=== PATIENT | male | born 1930 | race African-American/Black ===

== ENCOUNTER 2017-06-28 08:40 | Inpatient (IN) | payer MEDICARE, MEDICAID ==
[~2017-06-28] VITALS: Ht 170.2 cm; Wt 80.7 kg
[~2017-06-28 08:40] MED LIST: CARV12.545 PO; CLONIDINE PATCH TD; COLC0.6T66 PO; DICL50TA9 PO; DIGO250T4 PO; DOCU250C69 PO; FURO-151 PO; GABA-290 PO; LISI40TA4 PO; LORA10TA7 PO; LOSA100T14 PO; POTA10CA42 PO; PRED5DRO7 EACHEYE; PROP10DR2 EACHEYE; SYSOS EACHEYE; TAMS-11 PO
[2017-06-28] MEDS ORDERED: [UNRECOGNIZED DRUG - REMARK] (08:50)
[2017-06-28] MEDS ORDERED: SACU1TAB PO (08:50)
[2017-06-28] MEDS ORDERED: MORPHINE SULFATE 4 MG/ML CPJ (NOT FOR IM USE) IV STA (09:35)
[2017-06-28] MEDS ORDERED: SODIUM CHLORIDE 0.9% 1,000 ML IV ONE (09:35)
[2017-06-28] MEDS ORDERED: ONDANSETRON HCL 4MG/2ML VIAL IV STA (09:35)
[2017-06-28 10:05] LABS: CLARITY URINE CLEAR (CLEAR); COLOR URINE YELLOW (YELLOW); GLUCOSE URINE NEGATIVE (NEGATIVE); KETONES URINE NEGATIVE (NEGATIVE); LEUKOCYTE ESTERASE URINE NEGATIVE (NEGATIVE); NITRITE URINE NEGATIVE (NEGATIVE); OCCULT BLOOD URINE NEGATIVE (NEGATIVE); PH URINE 6.5 (4.5-8.0); PROTEIN URINE NEGATIVE (NEGATIVE); SPECIFIC GRAVITY URINE 1.009 (1.005-1.030); UROBILINOGEN URINE 0.2 E.U./dL (0.2-1.0)
[2017-06-28] MEDS ORDERED: MORPHINE SULFATE 2 MG/ML CPJ (NOT FOR IM USE) IV ONE (10:08)
[2017-06-28 10:09] LABS: BASOPHILS % 0.6 % (0.0-2.0); EOSINOPHILS % 0.6 % (0.0-5.0); HEMATOCRIT. 36.2 % (42.0-52.0); LYMPHOCYTES % 25.5 % (20.0-50.0); MEAN CORPUSCULAR HEMOGLOBIN 30.4 pg (28.0-32.0); MEAN CORPUSCULAR VOLUME 91.6 fL (80.0-94.0); MONOCYTES % 9.7 % (2.0-8.0); NEUTROPHILS % 63.6 % (40.0-76.0); RED BLOOD CELL COUNT 3.95 mill/uL (4.7-6.1); RED CELL DISTRIBUTION WIDTH 14.5 % (11.6-14.6)
[2017-06-28 10:17] LABS: INR 1.1; PARTIAL THROMBOPLASTIN TIME 32.8 sec (23.4-31.0); PROTHROMBIN TIME 11.9 sec (9.4-11.6)
[2017-06-28 10:20] LABS: CARBON DIOXIDE 28 mEq/L (21-32); CHLORIDE 106 mEq/L (98-107); TROPONIN I 0.05 ng/mL (0.00-0.04)
[2017-06-28 11:23] LABS: PLATELET 130 x1000/uL (130-400)
[2017-06-28] MEDS ORDERED: CEFTRIAXONE 1 G PREMIX 50 ML IV ONE (12:00)
[2017-06-28] MEDS ORDERED: ASPIRIN 325MG EC TABLET PO ONE (12:00)
[2017-06-28 14:45] VITALS: BP 166/80
[2017-06-28 16:00] VITALS: BP 170/71
[2017-06-28 16:15] VITALS: BP 157/67
[2017-06-28] MEDS ORDERED: ONDANSETRON HCL 4MG/2ML VIAL IV PRN (16:15)
[2017-06-28] MEDS ORDERED: CLONIDINE 0.1MG TABLET PO PRN (16:30)
[2017-06-28] MEDS ORDERED: DOCUSATE SODIUM 100MG CAPSULE PO PRN (17:00)
[2017-06-28] MEDS ORDERED: LORAZEPAM 0.5MG TABLET PO PRN (17:00)
[2017-06-28] MEDS ORDERED: GUAIFENESIN 200MG/10ML SUGAR FREE UDC PO PRN (17:00)
[2017-06-28] MEDS ORDERED: IPRATROPIUM/ALBUTEROL 0.5-3(2.5)MG/3ML NEB INH PRN (17:00)
[2017-06-28] MEDS ORDERED: ACETAMINOPHEN 325MG TABLET PO PRN (17:00)
[2017-06-28] MEDS ORDERED: MVI, ADULT NO.1 10 ML, THIAMINE HCL 100 MG in SODIUM CHLORIDE 0.9% 1,000 ML IV SCH ×3 (18:00)
[2017-06-28] MEDS ORDERED: DICL75TA5 PO (18:38)
[2017-06-28] MEDS ORDERED: FISH PO (18:38)
[2017-06-28 20:00] VITALS: BP 128/61
[2017-06-28] MEDS: GABAPENTIN 300MG CAPSULE PO SCH (22:59)
[2017-06-29] VITALS: BP 149/72
[2017-06-29 04:00] VITALS: BP 151/74
[2017-06-29] MEDS: GABAPENTIN 300MG CAPSULE PO SCH ×2 (05:38→15:28)
[2017-06-29 07:06] LABS: BASOPHILS % 0.7 % (0.0-2.0); EOSINOPHILS % 1.4 % (0.0-5.0); HEMATOCRIT. 31.5 % (42.0-52.0); HEMOGLOBIN. 10.4 g/dL (14.0-18.0); LYMPHOCYTES % 32.8 % (20.0-50.0); MEAN PLATELET VOLUME 8.6 fl (7.4-10.4); MONOCYTES % 10.8 % (2.0-8.0); NEUTROPHILS % 54.3 % (40.0-76.0); PLATELET 123 x1000/uL (130-400); RED BLOOD CELL COUNT 3.47 mill/uL (4.7-6.1); RED CELL DISTRIBUTION WIDTH 14.7 % (11.6-14.6)
[2017-06-29] MEDS ORDERED: OMEPRAZOLE 20MG CAPSULE EXTENDED RELEASE PO SCH (07:40)
[2017-06-29 07:43] LABS: CARBON DIOXIDE 27 mEq/L (21-32); CHLORIDE 110 mEq/L (98-107)
[2017-06-29 08:00] VITALS: BP 145/70
[2017-06-29] MEDS ORDERED: CLONIDINE HCL 0.3MG/24HR PATCH TD SCH (09:00)
[2017-06-29] MEDS ORDERED: NIFEDIPINE XL 60MG TAB PO SCH (09:00)
[2017-06-29] MEDS ORDERED: DICLOFENAC SODIUM 75MG DR (EC) TABLET PO SCH (09:00)
[2017-06-29] MEDS ORDERED: TAMSULOSIN HCL 0.4MG SR CAPSULE PO SCH (09:00)
[2017-06-29] MEDS ORDERED: CARVEDILOL 12.5MG TABLET PO SCH (09:00)
[2017-06-29] MEDS ORDERED: DOCUSATE SODIUM 250MG CAPSULE PO SCH (09:00)
[2017-06-29] MEDS ORDERED: LOSARTAN POTASSIUM 100 MG TABLET PO SCH (09:00)
[2017-06-29] MEDS ORDERED: FUROSEMIDE 40MG TABLET PO SCH (09:00)
[2017-06-29] MEDS ORDERED: POTASSIUM CHLORIDE 10MEQ TABLET SR PO SCH (09:00)
[2017-06-29 12:00] VITALS: BP 134/63
[2017-06-29 16:00] VITALS: BP 134/63
[2017-06-29] MEDS ORDERED: RIVAROXABAN 10 MG TABLET PO SCH (17:00)
[2017-06-29 17:26] VITALS: BP 149/73
[2017-06-29] MEDS ORDERED: DIGOXIN 250MCG TABLET PO SCH (18:00)
== END 2017-06-29 18:05 | disposition home or self-care (01) | DRG 291 ==
LOC: ER 09:23 → ENRESERV 13:04 → 7WST 13:13 → EDBEDREQ 13:16
PROVIDERS: ADMIT Internal Medicine; ATTEND Internal Medicine
DX: I11.0 Hypertensive heart disease with heart failure (principal); K57.91 Diverticulosis of intestine, part unspecified, without perforation or abscess with bleeding; R06.03 Acute respiratory distress; I24.9 Acute ischemic heart disease, unspecified; I43 Cardiomyopathy in diseases classified elsewhere; D64.9 Anemia, unspecified; I48.0 Paroxysmal atrial fibrillation; G43.909 Migraine, unspecified, not intractable, without status migrainosus; H40.9 Unspecified glaucoma; I50.43 Acute on chronic combined systolic (congestive) and diastolic (congestive) heart failure; I35.0 Nonrheumatic aortic (valve) stenosis; I25.10 Atherosclerotic heart disease of native coronary artery without angina pectoris; J44.9 Chronic obstructive pulmonary disease, unspecified; K59.00 Constipation, unspecified; M10.9 Gout, unspecified; M19.90 Unspecified osteoarthritis, unspecified site; M54.30 Sciatica, unspecified side; N40.1 Benign prostatic hyperplasia with lower urinary tract symptoms; Z96.643 Presence of artificial hip joint, bilateral; R35.1 Nocturia; Z79.899 Other long term (current) drug therapy; Z87.891 Personal history of nicotine dependence; Z95.1 Presence of aortocoronary bypass graft; Z95.2 Presence of prosthetic heart valve; Z95.810 Presence of automatic (implantable) cardiac defibrillator; Z98.42 Cataract extraction status, left eye; Z88.8 Allergy status to other drugs, medicaments and biological substances; Z88.1 Allergy status to other antibiotic agents
CPT/HCPCS: 36415; 71010; 74176; 80048; 80053; 80162; 81003; 82040; 83690; 83880; 84484; 85025; 85610; 85730; 87086; 93005; 96361; 96365; 96375; 99285; J0696; J2270; J2405; J3411; J3490; J7030

== ENCOUNTER 2018-01-29 21:11 | Inpatient (IN) | payer MEDICARE, MEDICAID ==
[~2018-01-29] VITALS: Ht 170.2 cm; Wt 85.3 kg
[~2018-01-29 21:11] MED LIST changes: -DICL50TA9 PO; +DICL75TA5 PO; +FISH PO; -LISI40TA4 PO; +SACU1TAB PO; +[UNRECOGNIZED DRUG - REMARK]
[2018-01-29] MEDS ORDERED: ASPIRIN 81MG TABLET PO STA (22:34)
[2018-01-29 23:36] LABS: CHLORIDE 108 mEq/L (98-107)
[2018-01-29 23:38] LABS: BASOPHILS % 0.6 % (0.0-2.0); EOSINOPHILS % 1.6 % (0.0-5.0); HEMATOCRIT. 35.4 % (42.0-52.0); HEMOGLOBIN. 11.6 g/dL (14.0-18.0); LYMPHOCYTES % 28.6 % (20.0-50.0); MEAN CORPUSCULAR HEMOGLOBIN 29.9 pg (28.0-32.0); MEAN CORPUSCULAR VOLUME 91.1 fL (80.0-94.0); MEAN PLATELET VOLUME 8.4 fl (7.4-10.4); MONOCYTES % 13.3 % (2.0-8.0); NEUTROPHILS % 55.9 % (40.0-76.0); PLATELET 173 x1000/uL (130-400); RED BLOOD CELL COUNT 3.88 mill/uL (4.7-6.1); RED CELL DISTRIBUTION WIDTH 15.2 % (11.6-14.6)
[2018-01-29 23:56] LABS: D-DIMER 1.58 mg/L FEU (<0.50); INR 1.2; PARTIAL THROMBOPLASTIN TIME 36.2 sec (23.4-31.0); PROTHROMBIN TIME 12.3 sec (9.4-11.6)
[2018-01-30 09:00] VITALS: BP 178/79
[2018-01-30 09:48] VITALS: BP 178/79
[2018-01-30] MEDS ORDERED: DOCUSATE SODIUM 100MG CAPSULE PO PRN (10:30)
[2018-01-30] MEDS ORDERED: LORAZEPAM 0.5MG TABLET PO PRN (10:30)
[2018-01-30] MEDS ORDERED: GUAIFENESIN 200MG/10ML SUGAR FREE UDC PO PRN (10:30)
[2018-01-30] MEDS ORDERED: CLONIDINE 0.1MG TABLET PO PRN (10:30)
[2018-01-30] MEDS ORDERED: ACETAMINOPHEN 325MG TABLET PO PRN (10:30)
[2018-01-30] MEDS ORDERED: ONDANSETRON HCL 4MG/2ML VIAL IV PRN (10:30)
[2018-01-30] MEDS ORDERED: SACU1TAB7 MT (10:56)
[2018-01-30] MEDS ORDERED: HYDROCODONE/ACETAMINOPHEN 5/325MG TABLET PO PRN (11:00)
[2018-01-30] MEDS ORDERED: DIPHENHYDRAMINE 25MG CAPSULE PO PRN (11:00)
[2018-01-30 12:00] VITALS: BP 172/80
[2018-01-30] MEDS ORDERED: NIFEDIPINE XL 60MG TAB PO SCH (12:00)
[2018-01-30] MEDS ORDERED: FUROSEMIDE 40MG TABLET PO SCH (12:01)
[2018-01-30] MEDS: FERROUS SULFATE 325MG TABLET PO SCH ×2 (12:42→17:12)
[2018-01-30] MEDS: ENOXAPARIN 40MG/0.4ML SYR SUBCUT SCH (12:43)
[2018-01-30] MEDS ORDERED: CLONIDINE HCL 0.3MG/24HR PATCH TD SCH (14:00)
[2018-01-30 16:00] VITALS: BP 176/80
[2018-01-30] MEDS: POTASSIUM CHLORIDE 10MEQ TABLET SR PO SCH (17:12)
[2018-01-30] MEDS: DIGOXIN 250MCG TABLET PO SCH (17:12)
[2018-01-30 20:00] VITALS: BP 152/77
[2018-01-30] MEDS: FUROSEMIDE 100MG/10ML VIAL IVP SCH (20:39)
[2018-01-30] MEDS: CARVEDILOL 12.5MG TABLET PO SCH (20:40)
[2018-01-30] MEDS: VALSARTAN PO SCH (20:40)
[2018-01-30] MEDS: SACUBITRIL PO SCH (20:40)
[2018-01-30] MEDS: TAMSULOSIN HCL 0.4MG SR CAPSULE PO SCH (20:47)
[2018-01-30 23:54] VITALS: BP 142/79
[2018-01-31 04:00] VITALS: BP 153/75
[2018-01-31 06:45] LABS: CHLORIDE 105 mEq/L (98-107)
[2018-01-31] MEDS: FUROSEMIDE 100MG/10ML VIAL IVP SCH ×2 (06:48→17:11)
[2018-01-31 07:15] LABS: DIGOXIN 1.4 ng/mL (0.9-2.0)
[2018-01-31 07:53] VITALS: BP 120/72
[2018-01-31] MEDS: POTASSIUM CHLORIDE 10MEQ TABLET SR PO SCH (09:00)
[2018-01-31] MEDS: FERROUS SULFATE 325MG TABLET PO SCH ×3 (09:00→17:11)
[2018-01-31] MEDS: CARVEDILOL 12.5MG TABLET PO SCH ×2 (09:00→20:39)
[2018-01-31] MEDS: ENOXAPARIN 40MG/0.4ML SYR SUBCUT SCH (09:01)
[2018-01-31] MEDS: SACUBITRIL PO SCH ×2 (09:01→20:39)
[2018-01-31] MEDS: VALSARTAN PO SCH ×2 (09:01→20:39)
[2018-01-31 12:00] VITALS: BP 147/76
[2018-01-31 16:00] VITALS: BP 139/66
[2018-01-31] MEDS: DIGOXIN 250MCG TABLET PO SCH (17:11)
[2018-01-31] MEDS: POTASSIUM CHLORIDE 20MEQ TABLET SR PO SCH (17:11)
[2018-01-31 20:00] VITALS: BP 120/75
[2018-01-31] MEDS: NIFEDIPINE XL 60MG TAB PO SCH (20:39)
[2018-01-31] MEDS: TAMSULOSIN HCL 0.4MG SR CAPSULE PO SCH (20:43)
[2018-02-01] VITALS: BP 123/64
[2018-02-01 04:00] VITALS: BP 144/69
[2018-02-01] MEDS: FUROSEMIDE 100MG/10ML VIAL IVP SCH (06:19)
[2018-02-01 06:47] LABS: BASOPHILS % 0.7 % (0.0-2.0); EOSINOPHILS % 1.1 % (0.0-5.0); HEMATOCRIT. 37.9 % (42.0-52.0); HEMOGLOBIN. 12.7 g/dL (14.0-18.0); LYMPHOCYTES % 30.6 % (20.0-50.0); MEAN CORPUSCULAR HEMOGLOBIN 30.2 pg (28.0-32.0); MEAN CORPUSCULAR VOLUME 90.5 fL (80.0-94.0); MEAN PLATELET VOLUME 8.8 fl (7.4-10.4); NEUTROPHILS % 54.6 % (40.0-76.0); PLATELET 159 x1000/uL (130-400); RED BLOOD CELL COUNT 4.19 mill/uL (4.7-6.1)
[2018-02-01 08:00] VITALS: BP 115/73
[2018-02-01] MEDS: NIFEDIPINE XL 60MG TAB PO SCH ×3 (08:45→17:05)
[2018-02-01] MEDS: FERROUS SULFATE 325MG TABLET PO SCH ×3 (08:45→17:05)
[2018-02-01] MEDS: POTASSIUM CHLORIDE 20MEQ TABLET SR PO SCH ×2 (08:45→17:05)
[2018-02-01] MEDS: CARVEDILOL 12.5MG TABLET PO SCH ×2 (08:45→21:02)
[2018-02-01] MEDS: ENOXAPARIN 40MG/0.4ML SYR SUBCUT SCH (08:46)
[2018-02-01] MEDS: SACUBITRIL PO SCH ×2 (08:46→21:02)
[2018-02-01] MEDS: VALSARTAN PO SCH ×2 (08:46→21:02)
[2018-02-01 12:00] VITALS: BP 131/76
[2018-02-01 16:00] VITALS: BP 145/83
[2018-02-01] MEDS: DIGOXIN 250MCG TABLET PO SCH (17:05)
[2018-02-01] MEDS: FUROSEMIDE 80MG TABLET PO SCH (17:05)
[2018-02-01 20:00] VITALS: BP 145/72
[2018-02-01] MEDS: TAMSULOSIN HCL 0.4MG SR CAPSULE PO SCH (21:02)
[2018-02-02 00:05] VITALS: BP 122/66
[2018-02-02 04:00] VITALS: BP 129/69
[2018-02-02] MEDS: FUROSEMIDE 80MG TABLET PO SCH (05:55)
[2018-02-02 08:00] VITALS: BP 105/69
[2018-02-02] MEDS: VALSARTAN PO SCH (08:44)
[2018-02-02] MEDS: SACUBITRIL PO SCH (08:44)
[2018-02-02] MEDS: CARVEDILOL 12.5MG TABLET PO SCH (08:45)
[2018-02-02] MEDS: FERROUS SULFATE 325MG TABLET PO SCH (08:45)
[2018-02-02] MEDS: ENOXAPARIN 40MG/0.4ML SYR SUBCUT SCH (08:46)
[2018-02-02] MEDS: NIFEDIPINE XL 60MG TAB PO SCH (08:46)
[2018-02-02] MEDS: POTASSIUM CHLORIDE 20MEQ TABLET SR PO SCH (08:46)
[2018-02-02 10:32] VITALS: BP 105/69
[2018-02-02 11:09] LABS: BASOPHILS % 0.8 % (0.0-2.0); EOSINOPHILS % 0.6 % (0.0-5.0); HEMATOCRIT. 41.4 % (42.0-52.0); HEMOGLOBIN. 13.7 g/dL (14.0-18.0); LYMPHOCYTES % 20.4 % (20.0-50.0); MEAN CORPUSCULAR VOLUME 90.6 fL (80.0-94.0); MEAN PLATELET VOLUME 8.7 fl (7.4-10.4); MONOCYTES % 10.8 % (2.0-8.0); NEUTROPHILS % 67.4 % (40.0-76.0); PLATELET 172 x1000/uL (130-400); RED BLOOD CELL COUNT 4.57 mill/uL (4.7-6.1); RED CELL DISTRIBUTION WIDTH 15.4 % (11.6-14.6)
== END 2018-02-02 11:32 | disposition home or self-care (01) | DRG 291 ==
LOC: EDBEDREQ 23:04 → EDBEDREQDT 01-30 00:31 → EDBEDREQTM 01-30 00:31 → EDBEDREQ 01-30 00:45 → ER 01-30 01:01 → 7WST 01-30 01:02 → ENRESERV 01-30 07:38
PROVIDERS: ADMIT Internal Medicine; ATTEND Internal Medicine
DX: I11.0 Hypertensive heart disease with heart failure (principal); K57.91 Diverticulosis of intestine, part unspecified, without perforation or abscess with bleeding; I47.2 Ventricular tachycardia; R06.03 Acute respiratory distress; I50.43 Acute on chronic combined systolic (congestive) and diastolic (congestive) heart failure; I43 Cardiomyopathy in diseases classified elsewhere; M19.90 Unspecified osteoarthritis, unspecified site; I25.10 Atherosclerotic heart disease of native coronary artery without angina pectoris; G43.909 Migraine, unspecified, not intractable, without status migrainosus; H26.9 Unspecified cataract; H40.9 Unspecified glaucoma; Z96.641 Presence of right artificial hip joint; G47.9 Sleep disorder, unspecified; I35.0 Nonrheumatic aortic (valve) stenosis; I48.0 Paroxysmal atrial fibrillation; J44.9 Chronic obstructive pulmonary disease, unspecified; K59.00 Constipation, unspecified; M10.9 Gout, unspecified; N40.1 Benign prostatic hyperplasia with lower urinary tract symptoms; Z87.891 Personal history of nicotine dependence; Z88.3 Allergy status to other anti-infective agents; Z79.899 Other long term (current) drug therapy; Z95.810 Presence of automatic (implantable) cardiac defibrillator; Z95.1 Presence of aortocoronary bypass graft; Z95.2 Presence of prosthetic heart valve; Z88.1 Allergy status to other antibiotic agents; Z79.1 Long term (current) use of non-steroidal anti-inflammatories (NSAID)
CPT/HCPCS: 36415; 71045; 71275; 80048; 80053; 80162; 82040; 83735; 83880; 84484; 85025; 85379; 85610; 85730; 93005; 99285; J1650; J1940

== ENCOUNTER 2018-07-08 05:57 | Inpatient (IN) | payer MEDICARE, MEDICAID ==
[~2018-07-08] VITALS: Ht 170.2 cm; Wt 86.2 kg
[~2018-07-08 05:57] MED LIST changes: -SACU1TAB PO; +SACU1TAB7 MT
[2018-07-08] MEDS ORDERED: ASPIRIN 81MG TABLET PO ONE (09:15)
[2018-07-08 09:35] LABS: BASOPHILS % 0.6 % (0.0-2.0); EOSINOPHILS % 0.8 % (0.0-5.0); HEMATOCRIT. 37.1 % (42.0-52.0); HEMOGLOBIN. 12.4 g/dL (14.0-18.0); LYMPHOCYTES % 20.3 % (20.0-50.0); MEAN CORPUSCULAR HEMOGLOBIN 31.4 pg (28.0-32.0); MEAN CORPUSCULAR VOLUME 93.9 fL (80.0-94.0); MEAN PLATELET VOLUME 8.5 fl (7.4-10.4); MONOCYTES % 11.6 % (2.0-8.0); NEUTROPHILS % 66.7 % (40.0-76.0); PLATELET 124 x1000/uL (130-400); RED BLOOD CELL COUNT 3.95 mill/uL (4.7-6.1); RED CELL DISTRIBUTION WIDTH 14.5 % (11.6-14.6)
[2018-07-08 09:40] LABS: CHLORIDE 107 mEq/L (98-107)
[2018-07-08 09:45] LABS: D-DIMER 1.58 mg/L FEU (<0.50); INR 1.1; PARTIAL THROMBOPLASTIN TIME 34.2 sec (23.4-31.0); PROTHROMBIN TIME 11.2 sec (9.1-11.1)
[2018-07-08] MEDS ORDERED: FUROSEMIDE 40MG/4ML VIAL IV ONE (11:00)
[2018-07-08] MEDS ORDERED: NITROGLYCERIN OINT 1GM/INCH UDPKT TD ONE (11:00)
[2018-07-08 12:21] LABS: CLARITY URINE CLEAR (CLEAR); COLOR URINE YELLOW (YELLOW); KETONES URINE NEGATIVE (NEGATIVE); LEUKOCYTE ESTERASE URINE TRACE (NEGATIVE); NITRITE URINE NEGATIVE (NEGATIVE); OCCULT BLOOD URINE NEGATIVE (NEGATIVE); PH URINE 5.5 (4.5-8.0); PROTEIN URINE 2+ (NEGATIVE); SPECIFIC GRAVITY URINE 1.017 (1.005-1.030)
[2018-07-08] MEDS ORDERED: CLONIDINE 0.1MG TABLET PO PRN (14:15)
[2018-07-08] MEDS ORDERED: ONDANSETRON HCL 4MG/2ML INJ IV PRN (14:15)
[2018-07-08] MEDS ORDERED: HYDROCODONE/ACETAMINOPHEN 5/325MG TABLET PO PRN (14:15)
[2018-07-08] MEDS ORDERED: LORAZEPAM 0.5MG TABLET PO PRN (14:15)
[2018-07-08] MEDS ORDERED: DOCUSATE SODIUM 100MG CAPSULE PO PRN (14:15)
[2018-07-08] MEDS ORDERED: ACETAMINOPHEN 325MG TABLET PO PRN (14:15)
[2018-07-08] MEDS ORDERED: IPRATROPIUM/ALBUTEROL 0.5-3(2.5)MG/3ML NEB INH PRN (14:15)
[2018-07-08] MEDS ORDERED: GUAIFENESIN 200MG/10ML SUGAR FREE UDC PO PRN (14:15)
[2018-07-08] MEDS: LOSARTAN POTASSIUM 100 MG TABLET PO SCH (15:30)
[2018-07-08 20:00] VITALS: BP 169/90
[2018-07-08 21:00] VITALS: BP 169/90
[2018-07-08] MEDS: FISH OIL/OMEGA-3 FATTY ACIDS 1000MG CAPSULE PO SCH (22:00)
[2018-07-08] MEDS ORDERED: CLONIDINE HCL 0.3MG/24HR PATCH TD SCH (22:00)
[2018-07-08] MEDS: POTASSIUM CHLORIDE 10MEQ TABLET SR PO SCH (23:25)
[2018-07-08] MEDS: NIFEDIPINE XL 60MG TAB PO SCH (23:25)
[2018-07-08] MEDS: DICLOFENAC SODIUM 50MG EC TABLET PO SCH (23:25)
[2018-07-08] MEDS: ENOXAPARIN 40MG/0.4ML SYR SUBCUT SCH (23:26)
[2018-07-09 00:08] VITALS: BP 139/80
[2018-07-09 04:00] VITALS: BP 128/73
[2018-07-09 07:44] LABS: BASOPHILS % 0.7 % (0.0-2.0); EOSINOPHILS % 1.6 % (0.0-5.0); HEMATOCRIT. 32.8 % (42.0-52.0); HEMOGLOBIN. 11.1 g/dL (14.0-18.0); MEAN CORPUSCULAR HEMOGLOBIN 31.5 pg (28.0-32.0); MEAN CORPUSCULAR VOLUME 93.2 fL (80.0-94.0); MEAN PLATELET VOLUME 9.4 fl (7.4-10.4); MONOCYTES % 11.7 % (2.0-8.0); PLATELET 122 x1000/uL (130-400); RED BLOOD CELL COUNT 3.51 mill/uL (4.7-6.1); RED CELL DISTRIBUTION WIDTH 13.9 % (11.6-14.6)
[2018-07-09 08:00] VITALS: BP 124/61
[2018-07-09 08:53] LABS: CHLORIDE 109 mEq/L (98-107)
[2018-07-09] MEDS: DIGOXIN 250MCG TABLET PO SCH (09:02)
[2018-07-09] MEDS: FERROUS SULFATE 325MG TABLET PO SCH ×2 (09:03→17:09)
[2018-07-09] MEDS: LOSARTAN POTASSIUM 100 MG TABLET PO SCH (09:03)
[2018-07-09] MEDS: POTASSIUM CHLORIDE 10MEQ TABLET SR PO SCH ×2 (09:03→17:08)
[2018-07-09] MEDS: CARVEDILOL 12.5MG TABLET PO SCH ×2 (09:03→17:09)
[2018-07-09] MEDS: DICLOFENAC SODIUM 50MG EC TABLET PO SCH ×2 (09:04→21:23)
[2018-07-09] MEDS: TAMSULOSIN HCL 0.4MG SR CAPSULE PO SCH (09:04)
[2018-07-09] MEDS: FUROSEMIDE 40MG TABLET PO SCH (09:05)
[2018-07-09] MEDS: NIFEDIPINE XL 60MG TAB PO SCH ×2 (09:05→17:09)
[2018-07-09] MEDS ORDERED: REGADENOSON 0.4 MG/5 ML IV NR (11:15)
[2018-07-09 12:00] VITALS: BP 122/64
[2018-07-09] MEDS: FISH OIL/OMEGA-3 FATTY ACIDS 1000MG CAPSULE PO SCH (12:05)
[2018-07-09 16:00] VITALS: BP 131/69
[2018-07-09 20:00] VITALS: BP 125/65
[2018-07-09] MEDS: ENOXAPARIN 40MG/0.4ML SYR SUBCUT SCH (21:25)
[2018-07-10] VITALS: BP 124/64
[2018-07-10 04:00] VITALS: BP 135/63
[2018-07-10 08:00] VITALS: BP 144/72
[2018-07-10] MEDS ORDERED: REGADENOSON 0.4 MG/5 ML IV ONE (09:22)
[2018-07-10] MEDS: LOSARTAN POTASSIUM 100 MG TABLET PO SCH (10:32)
[2018-07-10] MEDS: TAMSULOSIN HCL 0.4MG SR CAPSULE PO SCH (10:32)
[2018-07-10] MEDS: CARVEDILOL 12.5MG TABLET PO SCH ×2 (10:32→17:07)
[2018-07-10] MEDS: FUROSEMIDE 40MG TABLET PO SCH (10:32)
[2018-07-10] MEDS: FERROUS SULFATE 325MG TABLET PO SCH ×2 (10:32→17:07)
[2018-07-10] MEDS: POTASSIUM CHLORIDE 10MEQ TABLET SR PO SCH ×2 (10:33→17:07)
[2018-07-10] MEDS: NIFEDIPINE XL 60MG TAB PO SCH ×2 (10:35→17:07)
[2018-07-10] MEDS: FISH OIL/OMEGA-3 FATTY ACIDS 1000MG CAPSULE PO SCH (10:37)
[2018-07-10] MEDS: DICLOFENAC SODIUM 50MG EC TABLET PO SCH (10:37)
[2018-07-10] MEDS: DIGOXIN 250MCG TABLET PO SCH (10:38)
[2018-07-10 12:00] VITALS: BP 157/70
[2018-07-10 16:00] VITALS: BP 145/70
[2018-07-10 16:36] VITALS: BP 142/70
== END 2018-07-10 17:57 | disposition home or self-care (01) | DRG 291 ==
LOC: ER 05:57 → 7WST 11:28 → ENRESERV 20:10
PROVIDERS: ADMIT Internal Medicine; ATTEND Internal Medicine
DX: I11.0 Hypertensive heart disease with heart failure (principal); K57.91 Diverticulosis of intestine, part unspecified, without perforation or abscess with bleeding; J44.9 Chronic obstructive pulmonary disease, unspecified; D64.9 Anemia, unspecified; I50.83 High output heart failure; G89.29 Other chronic pain; H40.9 Unspecified glaucoma; I25.10 Atherosclerotic heart disease of native coronary artery without angina pectoris; I43 Cardiomyopathy in diseases classified elsewhere; M54.5 Low back pain; G43.909 Migraine, unspecified, not intractable, without status migrainosus; K59.00 Constipation, unspecified; I50.43 Acute on chronic combined systolic (congestive) and diastolic (congestive) heart failure; I48.2 Chronic atrial fibrillation; M10.9 Gout, unspecified; M19.90 Unspecified osteoarthritis, unspecified site; N40.1 Benign prostatic hyperplasia with lower urinary tract symptoms; Z96.643 Presence of artificial hip joint, bilateral; Z96.652 Presence of left artificial knee joint; Z87.891 Personal history of nicotine dependence; Z95.2 Presence of prosthetic heart valve; Z95.810 Presence of automatic (implantable) cardiac defibrillator; Z95.1 Presence of aortocoronary bypass graft; Z88.1 Allergy status to other antibiotic agents; Z98.42 Cataract extraction status, left eye; Z98.41 Cataract extraction status, right eye; Z79.899 Other long term (current) drug therapy
CPT/HCPCS: 36415; 71045; 78452; 78582; 80162; 82040; 83880; 84484; 85379; 87077; 87186; 93005; 93017; 93970; 96374; 99285; A9500; A9558; J1650; J1940; J2785

== ENCOUNTER 2018-08-18 13:46 | Inpatient (IN) | payer MEDICARE, MEDICAID ==
[~2018-08-18] VITALS: Ht 170.2 cm; Wt 82.6 kg
[2018-08-18 16:32] LABS: HEMATOCRIT. 38.5 % (42.0-52.0); HEMOGLOBIN. 13.1 g/dL (14.0-18.0); MEAN CORPUSCULAR HEMOGLOBIN 32.6 pg (28.0-32.0); MEAN CORPUSCULAR VOLUME 95.6 fL (80.0-94.0); MEAN PLATELET VOLUME 10.3 fl (7.4-10.4); PLATELET 128 x1000/uL (130-400); RED BLOOD CELL COUNT 4.02 mill/uL (4.7-6.1); RED CELL DISTRIBUTION WIDTH 14.1 % (11.6-14.6)
[2018-08-18 16:38] LABS: CHLORIDE 105 mEq/L (98-107)
[2018-08-18 16:41] LABS: INR 1.1; PROTHROMBIN TIME 11.4 sec (9.1-11.1)
[2018-08-18 17:25] LABS: PLATELET ESTIMATE SLIGHTLY DECREASED
[2018-08-18 18:20] LABS: CLARITY URINE CLEAR (CLEAR); COLOR URINE YELLOW (YELLOW); KETONES URINE TRACE (NEGATIVE); LEUKOCYTE ESTERASE URINE NEGATIVE (NEGATIVE); NITRITE URINE NEGATIVE (NEGATIVE); OCCULT BLOOD URINE NEGATIVE (NEGATIVE); PH URINE 5.5 (4.5-8.0); PROTEIN URINE NEGATIVE (NEGATIVE); SPECIFIC GRAVITY URINE 1.014 (1.005-1.030)
[2018-08-18] MEDS ORDERED: FUROSEMIDE 40MG/4ML VIAL IVP ONE (19:00)
[2018-08-18] MEDS ORDERED: ASPIRIN 81MG TABLET PO ONE (19:00)
[2018-08-18] MEDS ORDERED: LORAZEPAM 0.5MG TABLET PO PRN (23:15)
[2018-08-18] MEDS ORDERED: ONDANSETRON HCL 4MG/2ML INJ IV PRN (23:15)
[2018-08-18] MEDS ORDERED: GUAIFENESIN 200MG/10ML SUGAR FREE UDC PO PRN (23:15)
[2018-08-18] MEDS ORDERED: DOCUSATE SODIUM 100MG CAPSULE PO PRN (23:15)
[2018-08-18] MEDS ORDERED: CLONIDINE 0.1MG TABLET PO PRN (23:15)
[2018-08-18] MEDS ORDERED: IPRATROPIUM/ALBUTEROL 0.5-3(2.5)MG/3ML NEB INH PRN (23:15)
[2018-08-18] MEDS ORDERED: ACETAMINOPHEN 325MG TABLET PO PRN (23:15)
[2018-08-18] MEDS ORDERED: DIPHENHYDRAMINE 25MG CAPSULE PO PRN (23:30)
[2018-08-19 00:02] LABS: DIGOXIN 1.4 ng/mL (0.9-2.0)
[2018-08-19] MEDS ORDERED: HYDROCODONE/ACETAMINOPHEN 5/325MG TABLET PO PRN (01:54)
[2018-08-19 02:31] VITALS: BP 135/71
[2018-08-19 04:00] VITALS: BP 111/65
[2018-08-19 08:00] VITALS: BP 116/57
[2018-08-19 08:12] LABS: BASOPHILS % 0.6 % (0.0-2.0); EOSINOPHILS % 1.1 % (0.0-5.0); HEMATOCRIT. 36.3 % (42.0-52.0); HEMOGLOBIN. 12.1 g/dL (14.0-18.0); LYMPHOCYTES % 41.4 % (20.0-50.0); MEAN CORPUSCULAR HEMOGLOBIN 31.4 pg (28.0-32.0); MEAN PLATELET VOLUME 9.4 fl (7.4-10.4); MONOCYTES % 14.4 % (2.0-8.0); NEUTROPHILS % 42.5 % (40.0-76.0); PLATELET 128 x1000/uL (130-400); RED BLOOD CELL COUNT 3.86 mill/uL (4.7-6.1); RED CELL DISTRIBUTION WIDTH 14.4 % (11.6-14.6)
[2018-08-19] MEDS: FUROSEMIDE 40MG TABLET PO SCH (08:46)
[2018-08-19] MEDS: LOSARTAN POTASSIUM 100 MG TABLET PO SCH (08:46)
[2018-08-19] MEDS: NIFEDIPINE XL 60MG TAB PO SCH ×2 (08:46→20:26)
[2018-08-19] MEDS: TAMSULOSIN HCL 0.4MG SR CAPSULE PO SCH (08:46)
[2018-08-19] MEDS: CARVEDILOL 12.5MG TABLET PO SCH ×2 (08:47→20:26)
[2018-08-19] MEDS: ENOXAPARIN 40MG/0.4ML SYR SUBCUT SCH (08:47)
[2018-08-19] MEDS: FERROUS SULFATE 325MG TABLET PO SCH ×2 (08:47→17:47)
[2018-08-19] MEDS: DICLOFENAC SODIUM 75MG DR (EC) TABLET PO SCH ×2 (08:47→20:26)
[2018-08-19] MEDS ORDERED: CLONIDINE HCL 0.3MG/24HR PATCH TD SCH (09:00)
[2018-08-19 09:12] LABS: CHLORIDE 108 mEq/L (98-107)
[2018-08-19 12:00] VITALS: BP 119/62
[2018-08-19] MEDS: POTASSIUM CHLORIDE 10MEQ TABLET SR PO SCH ×2 (13:46→17:47)
[2018-08-19 16:00] VITALS: BP 118/60
[2018-08-19] MEDS: DIGOXIN 250MCG TABLET PO SCH (17:47)
[2018-08-19 20:00] VITALS: BP 132/67
[2018-08-20] VITALS (7 sets, daily range): BP systolic 113–130; BP diastolic 54–68
[2018-08-20] MEDS: LOSARTAN POTASSIUM 100 MG TABLET PO SCH (09:22)
[2018-08-20] MEDS: CARVEDILOL 12.5MG TABLET PO SCH ×2 (09:22→20:50)
[2018-08-20] MEDS: FUROSEMIDE 40MG TABLET PO SCH (09:22)
[2018-08-20] MEDS: POTASSIUM CHLORIDE 10MEQ TABLET SR PO SCH ×2 (09:22→17:10)
[2018-08-20] MEDS: NIFEDIPINE XL 60MG TAB PO SCH ×2 (09:22→20:50)
[2018-08-20] MEDS: DICLOFENAC SODIUM 75MG DR (EC) TABLET PO SCH ×2 (09:22→20:50)
[2018-08-20] MEDS: TAMSULOSIN HCL 0.4MG SR CAPSULE PO SCH (09:22)
[2018-08-20] MEDS: FERROUS SULFATE 325MG TABLET PO SCH ×2 (09:22→17:10)
[2018-08-20] MEDS: ENOXAPARIN 40MG/0.4ML SYR SUBCUT SCH (09:23)
[2018-08-20 10:00] LABS: BASOPHILS % 0.6 % (0.0-2.0); EOSINOPHILS % 0.9 % (0.0-5.0); HEMATOCRIT. 39.2 % (42.0-52.0); HEMOGLOBIN. 12.9 g/dL (14.0-18.0); LYMPHOCYTES % 37.9 % (20.0-50.0); MEAN CORPUSCULAR HEMOGLOBIN 31.3 pg (28.0-32.0); MEAN CORPUSCULAR VOLUME 94.9 fL (80.0-94.0); MEAN PLATELET VOLUME 9.1 fl (7.4-10.4); MONOCYTES % 10.1 % (2.0-8.0); NEUTROPHILS % 50.5 % (40.0-76.0); PLATELET 136 x1000/uL (130-400); RED BLOOD CELL COUNT 4.13 mill/uL (4.7-6.1); RED CELL DISTRIBUTION WIDTH 14.3 % (11.6-14.6)
[2018-08-20] MEDS: DIGOXIN 250MCG TABLET PO SCH (17:10)
[2018-08-21 00:04] VITALS: BP 117/56
[2018-08-21 04:00] VITALS: BP 116/53
[2018-08-21 08:07] LABS: BASOPHILS % 0.4 % (0.0-2.0); EOSINOPHILS % 1.4 % (0.0-5.0); HEMATOCRIT. 34.8 % (42.0-52.0); HEMOGLOBIN. 11.6 g/dL (14.0-18.0); LYMPHOCYTES % 34.3 % (20.0-50.0); MEAN CORPUSCULAR HEMOGLOBIN 31.6 pg (28.0-32.0); MEAN CORPUSCULAR VOLUME 94.8 fL (80.0-94.0); MEAN PLATELET VOLUME 9.4 fl (7.4-10.4); MONOCYTES % 11.5 % (2.0-8.0); NEUTROPHILS % 52.4 % (40.0-76.0); PLATELET 124 x1000/uL (130-400); RED BLOOD CELL COUNT 3.67 mill/uL (4.7-6.1)
[2018-08-21 08:21] VITALS: BP 135/69
[2018-08-21] MEDS: FUROSEMIDE 40MG TABLET PO SCH (09:20)
[2018-08-21] MEDS: LOSARTAN POTASSIUM 100 MG TABLET PO SCH (09:20)
[2018-08-21] MEDS: ENOXAPARIN 40MG/0.4ML SYR SUBCUT SCH (09:20)
[2018-08-21] MEDS: NIFEDIPINE XL 60MG TAB PO SCH (09:20)
[2018-08-21] MEDS: FERROUS SULFATE 325MG TABLET PO SCH (09:20)
[2018-08-21] MEDS: POTASSIUM CHLORIDE 10MEQ TABLET SR PO SCH (09:20)
[2018-08-21] MEDS: DICLOFENAC SODIUM 75MG DR (EC) TABLET PO SCH (09:21)
[2018-08-21] MEDS: TAMSULOSIN HCL 0.4MG SR CAPSULE PO SCH (09:21)
[2018-08-21] MEDS: CARVEDILOL 12.5MG TABLET PO SCH (09:21)
[2018-08-21 12:00] VITALS: BP 138/69
[2018-08-26] MEDS ORDERED: CLONIDINE HCL 0.3MG/24HR PATCH TD SCH (09:00)
== END 2018-08-21 13:13 | disposition home or self-care (01) | DRG 292 ==
LOC: ER 13:46 → EDBEDREQ 19:31 → 7WST 21:21 → EDBEDREQ 21:23 → EDBEDREQTM 21:23 → ENRESERV 08-19 00:11
PROVIDERS: ADMIT Internal Medicine; ATTEND Internal Medicine
DX: I11.0 Hypertensive heart disease with heart failure (principal); I47.2 Ventricular tachycardia; N17.9 Acute kidney failure, unspecified; I50.43 Acute on chronic combined systolic (congestive) and diastolic (congestive) heart failure; J44.9 Chronic obstructive pulmonary disease, unspecified; K57.90 Diverticulosis of intestine, part unspecified, without perforation or abscess without bleeding; I48.2 Chronic atrial fibrillation; I43 Cardiomyopathy in diseases classified elsewhere; I35.0 Nonrheumatic aortic (valve) stenosis; I25.10 Atherosclerotic heart disease of native coronary artery without angina pectoris; N20.0 Calculus of kidney; M19.90 Unspecified osteoarthritis, unspecified site; M10.9 Gout, unspecified; K74.60 Unspecified cirrhosis of liver; K59.00 Constipation, unspecified; N40.1 Benign prostatic hyperplasia with lower urinary tract symptoms; Z95.2 Presence of prosthetic heart valve; K64.9 Unspecified hemorrhoids; Z96.652 Presence of left artificial knee joint; Z87.891 Personal history of nicotine dependence; D64.9 Anemia, unspecified; G89.29 Other chronic pain; H26.9 Unspecified cataract; H40.9 Unspecified glaucoma; Z96.641 Presence of right artificial hip joint; Z88.8 Allergy status to other drugs, medicaments and biological substances; Z95.1 Presence of aortocoronary bypass graft; Z95.0 Presence of cardiac pacemaker; Z95.810 Presence of automatic (implantable) cardiac defibrillator
CPT/HCPCS: 36415; 71045; 74176; 80048; 80162; 82040; 83605; 83735; 83880; 84484; 93005; 93970; 96374; 99285; C1893; J1650; J1940

== ENCOUNTER 2018-09-26 14:04 | Emergency (ER) | payer MEDICARE, MEDICAID ==
[~2018-09-26] VITALS: Ht 175.3 cm; Wt 82.0 kg
[2018-09-27 02:58] LABS: CLARITY URINE CLEAR (CLEAR); COLOR URINE YELLOW (YELLOW); KETONES URINE TRACE (NEGATIVE); LEUKOCYTE ESTERASE URINE NEGATIVE (NEGATIVE); NITRITE URINE NEGATIVE (NEGATIVE); OCCULT BLOOD URINE NEGATIVE (NEGATIVE); PROTEIN URINE NEGATIVE (NEGATIVE); SPECIFIC GRAVITY URINE 1.016 (1.005-1.030)
[2018-09-27 03:00] LABS: CHLORIDE 109 mEq/L (98-107)
[2018-09-27 03:04] LABS: BASOPHILS % 0.7 % (0.0-2.0); EOSINOPHILS % 1.5 % (0.0-5.0); HEMATOCRIT. 39.4 % (42.0-52.0); INR 1.1; LYMPHOCYTES % 37.7 % (20.0-50.0); MEAN CORPUSCULAR HEMOGLOBIN 31.6 pg (28.0-32.0); MEAN CORPUSCULAR VOLUME 95.9 fL (80.0-94.0); MEAN PLATELET VOLUME 9.1 fl (7.4-10.4); MONOCYTES % 12.7 % (2.0-8.0); NEUTROPHILS % 47.4 % (40.0-76.0); PLATELET 158 x1000/uL (130-400); RED CELL DISTRIBUTION WIDTH 14.1 % (11.6-14.6)
[2018-09-27] MEDS ORDERED: HYDRALAZINE HCL 50MG TABLET PO NR (13:00)
[2018-09-27] MEDS ORDERED: CLONIDINE 0.2MG TABLET PO NR (13:00)
[2018-09-27] MEDS ORDERED: SACUBITRIL/VALSARTAN 49MG/51MG TABLET PO NR (13:00)
[2018-09-27 13:15] VITALS: BP 134/90
== END 2018-09-27 13:45 | disposition left against medical advice (07) ==
LOC: ER 14:04 → EDBEDREQ 09-27 04:22 → ER 09-27 13:45 → CANBEDREQ 09-27 14:09
DX: R07.9 Chest pain, unspecified (principal); I50.9 Heart failure, unspecified; J44.9 Chronic obstructive pulmonary disease, unspecified; R79.89 Other specified abnormal findings of blood chemistry; Z88.1 Allergy status to other antibiotic agents; Z95.0 Presence of cardiac pacemaker; Z95.1 Presence of aortocoronary bypass graft
CPT/HCPCS: 36415; 71045; 83735; 83880; 84484; 93005; 99284

== ENCOUNTER 2018-10-03 16:03 | Inpatient (IN) | payer MEDICARE, MEDICAID ==
[~2018-10-03] VITALS: Ht 170.2 cm; Wt 88.5 kg
[2018-10-03] MEDS ORDERED: ASPIRIN 81MG TABLET PO ONE (17:45)
[2018-10-03] MEDS ORDERED: FUROSEMIDE 40MG/4ML VIAL IV ONE (17:45)
[2018-10-03 19:02] LABS: BASOPHILS % 0.9 % (0.0-2.0); EOSINOPHILS % 1.2 % (0.0-5.0); LYMPHOCYTES % 33.2 % (20.0-50.0); MEAN CORPUSCULAR HEMOGLOBIN 30.9 pg (28.0-32.0); MEAN CORPUSCULAR VOLUME 95.3 fL (80.0-94.0); MEAN PLATELET VOLUME 9.9 fl (7.4-10.4); NEUTROPHILS % 50.7 % (40.0-76.0); PLATELET 145 x1000/uL (130-400); RED BLOOD CELL COUNT 3.88 mill/uL (4.7-6.1); RED CELL DISTRIBUTION WIDTH 14.2 % (11.6-14.6)
[2018-10-03 19:07] LABS: CHLORIDE 107 mEq/L (98-107)
[2018-10-03 19:11] LABS: ETHANOL BLOOD < 10 mg/dL
[2018-10-03 19:13] LABS: PHOSPHORUS 3.4 mg/dL (2.5-4.9)
[2018-10-03 20:15] LABS: INR 1.1; PROTHROMBIN TIME 11.5 sec (9.1-11.1)
[2018-10-03 23:00] LABS: CLARITY URINE CLEAR (CLEAR); COLOR URINE DARK YELLOW (YELLOW); KETONES URINE TRACE (NEGATIVE); LEUKOCYTE ESTERASE URINE TRACE (NEGATIVE); NITRITE URINE NEGATIVE (NEGATIVE); OCCULT BLOOD URINE NEGATIVE (NEGATIVE); PROTEIN URINE NEGATIVE (NEGATIVE); SPECIFIC GRAVITY URINE 1.016 (1.005-1.030)
[2018-10-03 23:10] LABS: *BENZODIAZEPINES SCREEN URINE NEGATIVE (NEGATIVE); *COCAINE SCREEN URINE NEGATIVE (NEGATIVE); METHADONE URINE SCREEN NEGATIVE (NEGATIVE); OPIATES URINE SCREEN NEGATIVE (NEGATIVE)
[2018-10-03 23:11] LABS: *AMPHETAMINES SCREEN URINE NEGATIVE (NEGATIVE); *BARBITURATES SCREEN URINE NEGATIVE (NEGATIVE); CANNABINOID URINE SCREEN NEGATIVE (NEGATIVE); PHENCYCLIDINE URINE SCREEN NEGATIVE (NEGATIVE)
[2018-10-03] MEDS ORDERED: ACETAMINOPHEN 325MG TABLET PO PRN (23:45)
[2018-10-03] MEDS ORDERED: ONDANSETRON HCL 4MG/2ML INJ IV PRN (23:45)
[2018-10-04] MEDS: SODIUM CHLORIDE 0.9% INJ 3ML FLUSH IVF SCH ×3 (06:11→22:15)
[2018-10-04 08:50] VITALS: BP 152/78
[2018-10-04 09:30] VITALS: BP 152/78
[2018-10-04 12:00] VITALS: BP 134/59
[2018-10-04] MEDS: FUROSEMIDE 40MG/4ML VIAL IVP SCH (12:13)
[2018-10-04] MEDS: GABAPENTIN 300MG CAPSULE PO SCH ×2 (12:13→22:14)
[2018-10-04] MEDS: LOSARTAN POTASSIUM 100 MG TABLET PO SCH (12:13)
[2018-10-04] MEDS: CARVEDILOL 12.5MG TABLET PO SCH ×2 (12:14→22:23)
[2018-10-04] MEDS: FISH OIL/OMEGA-3 FATTY ACIDS 1000MG CAPSULE PO SCH (12:14)
[2018-10-04] MEDS: LORATADINE 10MG TABLET PO SCH (12:14)
[2018-10-04] MEDS: DOCUSATE SODIUM 250MG CAPSULE PO SCH ×2 (12:14→22:14)
[2018-10-04] MEDS: POTASSIUM CHLORIDE 20MEQ/PACKET PO SCH ×2 (12:15→22:13)
[2018-10-04] MEDS ORDERED: PROPYLENE GLYCOL/PEG 400 OPTH DROPS BOTHEYE SCH (13:00)
[2018-10-04] MEDS ORDERED: SACUBITRIL/VALSARTAN 49MG/51MG TABLET PO SCH (13:00)
[2018-10-04] MEDS ORDERED: CLONIDINE HCL 0.3MG/24HR PATCH TD SCH (13:00)
[2018-10-04 13:04] LABS: DIGOXIN 1.6 ng/mL (0.9-2.0)
[2018-10-04 16:00] VITALS: BP 126/67
[2018-10-04] MEDS ORDERED: DIGOXIN 250MCG TABLET PO SCH (18:00)
[2018-10-04] MEDS: DICLOFENAC SODIUM 75MG DR (EC) TABLET PO SCH (19:04)
[2018-10-04] MEDS ORDERED: TAMSULOSIN HCL 0.4MG SR CAPSULE PO SCH (21:00)
[2018-10-04] MEDS: PREDNISOLONE ACETATE 1% OPHTH DROPS 1ML EACHEYE SCH (22:14)
[2018-10-05] MEDS: SODIUM CHLORIDE 0.9% INJ 3ML FLUSH IVF SCH (06:00)
[2018-10-05 07:42] LABS: BASOPHILS % 0.8 % (0.0-2.0); HEMATOCRIT. 35.1 % (42.0-52.0); HEMOGLOBIN. 11.5 g/dL (14.0-18.0); LYMPHOCYTES % 35.1 % (20.0-50.0); MEAN CORPUSCULAR HEMOGLOBIN 31.6 pg (28.0-32.0); MEAN PLATELET VOLUME 9.2 fl (7.4-10.4); MONOCYTES % 10.9 % (2.0-8.0); NEUTROPHILS % 52.2 % (40.0-76.0); PLATELET 122 x1000/uL (130-400); RED BLOOD CELL COUNT 3.65 mill/uL (4.7-6.1); RED CELL DISTRIBUTION WIDTH 13.7 % (11.6-14.6)
[2018-10-05] MEDS: LOSARTAN POTASSIUM 100 MG TABLET PO SCH (07:58)
[2018-10-05] MEDS: FISH OIL/OMEGA-3 FATTY ACIDS 1000MG CAPSULE PO SCH (07:58)
[2018-10-05] MEDS: LORATADINE 10MG TABLET PO SCH (07:58)
[2018-10-05] MEDS: GABAPENTIN 300MG CAPSULE PO SCH (07:58)
[2018-10-05] MEDS: FUROSEMIDE 40MG/4ML VIAL IVP SCH (07:58)
[2018-10-05] MEDS: DOCUSATE SODIUM 250MG CAPSULE PO SCH (07:58)
[2018-10-05] MEDS: CARVEDILOL 12.5MG TABLET PO SCH (07:58)
[2018-10-05] MEDS: POTASSIUM CHLORIDE 20MEQ/PACKET PO SCH (07:59)
[2018-10-05 08:00] VITALS: BP 143/73
[2018-10-05] MEDS: DICLOFENAC SODIUM 75MG DR (EC) TABLET PO SCH (08:01)
[2018-10-05] MEDS: PREDNISOLONE ACETATE 1% OPHTH DROPS 1ML EACHEYE SCH (08:01)
[2018-10-05 12:00] VITALS: BP 129/63
[2018-10-05 14:10] VITALS: BP 129/63
== END 2018-10-05 15:55 | disposition home or self-care (01) | DRG 291 ==
LOC: ER 16:03 → EDBEDREQTM 21:20 → EDBEDREQ 21:20 → ENRESERV 10-04 08:08 → 7WST 10-04 09:05
PROVIDERS: ADMIT Internal Medicine; ATTEND Internal Medicine
DX: I11.0 Hypertensive heart disease with heart failure (principal); N17.0 Acute kidney failure with tubular necrosis; I47.2 Ventricular tachycardia; E11.36 Type 2 diabetes mellitus with diabetic cataract; I50.43 Acute on chronic combined systolic (congestive) and diastolic (congestive) heart failure; F32.9 Major depressive disorder, single episode, unspecified; F41.9 Anxiety disorder, unspecified; I25.10 Atherosclerotic heart disease of native coronary artery without angina pectoris; I35.0 Nonrheumatic aortic (valve) stenosis; G43.909 Migraine, unspecified, not intractable, without status migrainosus; I48.2 Chronic atrial fibrillation; J44.9 Chronic obstructive pulmonary disease, unspecified; K57.90 Diverticulosis of intestine, part unspecified, without perforation or abscess without bleeding; K59.00 Constipation, unspecified; M10.9 Gout, unspecified; M19.90 Unspecified osteoarthritis, unspecified site; Z87.891 Personal history of nicotine dependence; Z95.0 Presence of cardiac pacemaker; Z95.1 Presence of aortocoronary bypass graft; Z95.2 Presence of prosthetic heart valve; Z88.1 Allergy status to other antibiotic agents; Z79.899 Other long term (current) drug therapy
CPT/HCPCS: 36415; 71045; 80048; 80162; 80305; 83735; 83880; 84100; 84484; 93005; 96374; 99285; J1940

== ENCOUNTER 2018-10-22 18:23 | Inpatient (IN) | payer MEDICARE, MEDICAID ==
[~2018-10-22] VITALS: Ht 170.2 cm; Wt 84.0 kg
[2018-10-22] MEDS ORDERED: ASPIRIN 325MG EC TABLET PO ONE (21:30)
[2018-10-22 21:49] LABS: BASOPHILS % 1.4 % (0.0-2.0); HEMATOCRIT. 35.1 % (42.0-52.0); HEMOGLOBIN. 11.4 g/dL (14.0-18.0); LYMPHOCYTES % 30.2 % (20.0-50.0); MEAN CORPUSCULAR HEMOGLOBIN 31.4 pg (28.0-32.0); MEAN CORPUSCULAR VOLUME 96.5 fL (80.0-94.0); MEAN PLATELET VOLUME 9.5 fl (7.4-10.4); MONOCYTES % 14.8 % (2.0-8.0); NEUTROPHILS % 52.6 % (40.0-76.0); PLATELET 147 x1000/uL (130-400); RED BLOOD CELL COUNT 3.63 mill/uL (4.7-6.1)
[2018-10-22 21:54] LABS: CHLORIDE 112 mEq/L (98-107)
[2018-10-22 22:05] LABS: INR 1.1; PROTHROMBIN TIME 11.2 sec (9.1-11.1)
[2018-10-22] MEDS ORDERED: ONDANSETRON HCL 4MG/2ML INJ IV PRN (23:45)
[2018-10-22] MEDS ORDERED: GUAIFENESIN 200MG/10ML SUGAR FREE UDC PO PRN (23:45)
[2018-10-22] MEDS ORDERED: DOCUSATE SODIUM 100MG CAPSULE PO PRN (23:45)
[2018-10-22] MEDS ORDERED: LORAZEPAM 0.5MG TABLET PO PRN (23:45)
[2018-10-22] MEDS ORDERED: CLONIDINE 0.1MG TABLET PO PRN (23:45)
[2018-10-22] MEDS ORDERED: IPRATROPIUM/ALBUTEROL 0.5-3(2.5)MG/3ML NEB INH PRN (23:45)
[2018-10-22] MEDS ORDERED: ACETAMINOPHEN 325MG TABLET PO PRN (23:45)
[2018-10-23] VITALS (7 sets, daily range): BP systolic 125–156; BP diastolic 57–96
[2018-10-23] MEDS: PREDNISOLONE ACETATE 1% OPHTH DROPS 1ML EACHEYE SCH ×2 (06:39→17:15)
[2018-10-23 07:07] LABS: BASOPHILS % 0.5 % (0.0-2.0); EOSINOPHILS % 1.4 % (0.0-5.0); HEMATOCRIT. 31.7 % (42.0-52.0); HEMOGLOBIN. 10.5 g/dL (14.0-18.0); LYMPHOCYTES % 36.8 % (20.0-50.0); MEAN CORPUSCULAR HEMOGLOBIN 31.8 pg (28.0-32.0); MEAN CORPUSCULAR VOLUME 96.6 fL (80.0-94.0); MEAN PLATELET VOLUME 9.3 fl (7.4-10.4); MONOCYTES % 14.2 % (2.0-8.0); NEUTROPHILS % 47.1 % (40.0-76.0); PLATELET 125 x1000/uL (130-400); RED BLOOD CELL COUNT 3.29 mill/uL (4.7-6.1); RED CELL DISTRIBUTION WIDTH 14.5 % (11.6-14.6)
[2018-10-23 07:25] LABS: CHLORIDE 113 mEq/L (98-107)
[2018-10-23] MEDS: DICLOFENAC SODIUM 50MG EC TABLET PO SCH ×2 (09:42→21:13)
[2018-10-23] MEDS: ENOXAPARIN 40MG/0.4ML SYR SUBCUT SCH (09:42)
[2018-10-23] MEDS: POTASSIUM CHLORIDE 10MEQ TABLET SR PO SCH ×2 (09:42→17:16)
[2018-10-23] MEDS: FUROSEMIDE 40MG TABLET PO SCH (09:43)
[2018-10-23] MEDS: GABAPENTIN 300MG CAPSULE PO SCH ×2 (09:43→17:16)
[2018-10-23] MEDS: LISINOPRIL 40MG TABLET PO SCH (09:43)
[2018-10-23] MEDS: CARVEDILOL 12.5MG TABLET PO SCH ×2 (09:43→21:13)
[2018-10-23] MEDS ORDERED: DIGOXIN 250MCG TABLET PO SCH (18:00)
[2018-10-23 18:31] LABS: CREATINE KINASE MB FRACTION 1.7 ng/mL (0.5-3.6)
[2018-10-23] MEDS ORDERED: TAMSULOSIN HCL 0.4MG SR CAPSULE PO SCH (21:00)
[2018-10-24] VITALS: BP 127/58
[2018-10-24 04:00] VITALS: BP 131/57
[2018-10-24] MEDS: PREDNISOLONE ACETATE 1% OPHTH DROPS 1ML EACHEYE SCH (05:19)
[2018-10-24 08:12] LABS: BASOPHILS % 0.4 % (0.0-2.0); EOSINOPHILS % 1.4 % (0.0-5.0); HEMATOCRIT. 30.7 % (42.0-52.0); MEAN CORPUSCULAR HEMOGLOBIN 31.2 pg (28.0-32.0); MEAN CORPUSCULAR VOLUME 95.9 fL (80.0-94.0); MEAN PLATELET VOLUME 9.5 fl (7.4-10.4); MONOCYTES % 12.2 % (2.0-8.0); PLATELET 120 x1000/uL (130-400); RED CELL DISTRIBUTION WIDTH 14.1 % (11.6-14.6)
[2018-10-24] MEDS: FUROSEMIDE 40MG TABLET PO SCH (08:53)
[2018-10-24] MEDS: POTASSIUM CHLORIDE 10MEQ TABLET SR PO SCH (08:53)
[2018-10-24] MEDS: GABAPENTIN 300MG CAPSULE PO SCH (08:54)
[2018-10-24] MEDS: CARVEDILOL 12.5MG TABLET PO SCH (08:54)
[2018-10-24] MEDS: LISINOPRIL 40MG TABLET PO SCH (08:55)
[2018-10-24] MEDS: DICLOFENAC SODIUM 50MG EC TABLET PO SCH (08:56)
[2018-10-24] MEDS: ENOXAPARIN 40MG/0.4ML SYR SUBCUT SCH (08:56)
[2018-10-24 12:08] VITALS: BP 140/64
[2018-10-24 16:00] VITALS: BP 147/72
[2018-10-25] MEDS ORDERED: CLONIDINE HCL 0.3MG/24HR PATCH TD SCH (09:00)
== END 2018-10-24 16:05 | disposition home health service (06) | DRG 292 ==
LOC: ER 18:23 → EDBEDREQTM 23:06 → EDBEDREQ 23:06 → ENRESERV 23:28 → 8WST 10-23 01:05
PROVIDERS: ADMIT Internal Medicine; ATTEND Internal Medicine
DX: I11.0 Hypertensive heart disease with heart failure (principal); I24.9 Acute ischemic heart disease, unspecified; K92.2 Gastrointestinal hemorrhage, unspecified; I50.43 Acute on chronic combined systolic (congestive) and diastolic (congestive) heart failure; I43 Cardiomyopathy in diseases classified elsewhere; F32.9 Major depressive disorder, single episode, unspecified; F41.9 Anxiety disorder, unspecified; G89.29 Other chronic pain; H40.9 Unspecified glaucoma; I25.10 Atherosclerotic heart disease of native coronary artery without angina pectoris; I35.0 Nonrheumatic aortic (valve) stenosis; I48.2 Chronic atrial fibrillation; J44.9 Chronic obstructive pulmonary disease, unspecified; K57.90 Diverticulosis of intestine, part unspecified, without perforation or abscess without bleeding; Z96.641 Presence of right artificial hip joint; Z96.652 Presence of left artificial knee joint; G43.909 Migraine, unspecified, not intractable, without status migrainosus; H26.9 Unspecified cataract; M54.5 Low back pain; K59.00 Constipation, unspecified; R25.1 Tremor, unspecified; D64.9 Anemia, unspecified; L91.0 Hypertrophic scar; M10.9 Gout, unspecified; M19.90 Unspecified osteoarthritis, unspecified site; N40.1 Benign prostatic hyperplasia with lower urinary tract symptoms; Y93.01 Activity, walking, marching and hiking; Z87.891 Personal history of nicotine dependence; Z95.1 Presence of aortocoronary bypass graft; Z95.2 Presence of prosthetic heart valve; Z88.1 Allergy status to other antibiotic agents; Z79.899 Other long term (current) drug therapy; Z95.810 Presence of automatic (implantable) cardiac defibrillator
CPT/HCPCS: 36415; 71045; 80048; 80162; 82550; 82553; 83735; 83880; 84484; 93005; 96372; 99285; J1650

== ENCOUNTER 2018-11-16 08:54 | Inpatient (IN) | payer MEDICARE, MEDICAID ==
[~2018-11-16] VITALS: Ht 170.2 cm; Wt 78.9 kg
[2018-11-16] MEDS ORDERED: ONDANSETRON HCL 4MG/2ML INJ IV STA (09:56)
[2018-11-16] MEDS ORDERED: FAMOTIDINE 20MG/2ML VIAL IV ONE (10:30)
[2018-11-16 10:32] LABS: BASOPHILS % 0.8 % (0.0-2.0); EOSINOPHILS % 0.2 % (0.0-5.0); HEMATOCRIT. 41.5 % (42.0-52.0); HEMOGLOBIN. 13.8 g/dL (14.0-18.0); LYMPHOCYTES % 27.7 % (20.0-50.0); MEAN CORPUSCULAR VOLUME 95.8 fL (80.0-94.0); MEAN PLATELET VOLUME 8.8 fl (7.4-10.4); MONOCYTES % 10.8 % (2.0-8.0); NEUTROPHILS % 60.5 % (40.0-76.0); PLATELET 152 x1000/uL (130-400); RED BLOOD CELL COUNT 4.33 mill/uL (4.7-6.1); RED CELL DISTRIBUTION WIDTH 13.7 % (11.6-14.6)
[2018-11-16 10:37] LABS: CHLORIDE 106 mEq/L (98-107)
[2018-11-16 10:38] LABS: INR 1.1; PARTIAL THROMBOPLASTIN TIME 35.1 sec (23.4-31.0); PROTHROMBIN TIME 11.8 sec (9.6-11.0)
[2018-11-16 10:43] LABS: CLARITY URINE CLEAR (CLEAR); COLOR URINE YELLOW (YELLOW); KETONES URINE NEGATIVE (NEGATIVE); LEUKOCYTE ESTERASE URINE NEGATIVE (NEGATIVE); NITRITE URINE NEGATIVE (NEGATIVE); OCCULT BLOOD URINE NEGATIVE (NEGATIVE); PH URINE 6.5 (4.5-8.0); PROTEIN URINE NEGATIVE (NEGATIVE)
[2018-11-16 11:08] LABS: *AMPHETAMINES SCREEN URINE NEGATIVE (NEGATIVE); *BARBITURATES SCREEN URINE NEGATIVE (NEGATIVE); *BENZODIAZEPINES SCREEN URINE NEGATIVE (NEGATIVE); *COCAINE SCREEN URINE NEGATIVE (NEGATIVE)
[2018-11-16 11:09] LABS: CANNABINOID URINE SCREEN NEGATIVE (NEGATIVE); METHADONE URINE SCREEN NEGATIVE (NEGATIVE); OPIATES URINE SCREEN NEGATIVE (NEGATIVE); PHENCYCLIDINE URINE SCREEN NEGATIVE (NEGATIVE)
[2018-11-16] MEDS ORDERED: FUROSEMIDE 20MG/2ML VIAL IVP ONE (11:30)
[2018-11-16 21:00] VITALS: BP 129/81
[2018-11-16 21:09] VITALS: BP 129/81
[2018-11-16] MEDS ORDERED: CLONIDINE HCL 0.1MG/24HR PATCH TD SCH (22:00)
[2018-11-16] MEDS ORDERED: ONDANSETRON HCL 4MG/2ML INJ IV PRN (22:30)
[2018-11-16] MEDS ORDERED: ACETAMINOPHEN 650MG/20.3ML UDC PO PRN (22:30)
[2018-11-16] MEDS ORDERED: CLONIDINE 0.1MG TABLET PO PRN (22:30)
[2018-11-16] MEDS ORDERED: ALBUTEROL 6.7GM HFA INHALER ORI PRN (23:00)
[2018-11-17] VITALS: BP 141/73
[2018-11-17] MEDS ORDERED: ALBUTEROL (0.083%) 2.5MG/3ML NEB HHN PRN (00:30)
[2018-11-17 04:00] VITALS: BP 122/66
[2018-11-17 06:20] LABS: BASOPHILS % 0.8 % (0.0-2.0); EOSINOPHILS % 1.1 % (0.0-5.0); HEMATOCRIT. 37.6 % (42.0-52.0); HEMOGLOBIN. 12.9 g/dL (14.0-18.0); LYMPHOCYTES % 33.8 % (20.0-50.0); MEAN CORPUSCULAR HEMOGLOBIN 32.3 pg (28.0-32.0); MEAN CORPUSCULAR VOLUME 94.3 fL (80.0-94.0); MEAN PLATELET VOLUME 9.4 fl (7.4-10.4); MONOCYTES % 13.7 % (2.0-8.0); NEUTROPHILS % 50.6 % (40.0-76.0); PLATELET 146 x1000/uL (130-400); RED BLOOD CELL COUNT 3.99 mill/uL (4.7-6.1); RED CELL DISTRIBUTION WIDTH 13.8 % (11.6-14.6)
[2018-11-17 06:52] LABS: CHLORIDE 106 mEq/L (98-107)
[2018-11-17] MEDS: FERROUS SULFATE 325MG TABLET PO SCH ×3 (07:40→18:46)
[2018-11-17 08:00] VITALS: BP 134/75
[2018-11-17] MEDS: FUROSEMIDE 40MG TABLET PO SCH ×2 (09:00→11:35)
[2018-11-17] MEDS: GABAPENTIN 300MG CAPSULE PO SCH ×2 (09:00→11:35)
[2018-11-17] MEDS: CARVEDILOL 12.5MG TABLET PO SCH ×2 (09:00→22:01)
[2018-11-17] MEDS: DOCUSATE SODIUM 250MG CAPSULE PO SCH ×2 (09:00→11:36)
[2018-11-17] MEDS: NIFEDIPINE XL 60MG TAB PO SCH ×3 (09:00→22:00)
[2018-11-17] MEDS: POTASSIUM CHLORIDE 10MEQ TABLET SR PO SCH ×3 (09:00→18:46)
[2018-11-17] MEDS: FISH OIL/OMEGA-3 FATTY ACIDS 1000MG CAPSULE PO SCH ×2 (09:00→11:36)
[2018-11-17] MEDS: DICLOFENAC SODIUM 50MG EC TABLET PO SCH ×3 (09:00→22:00)
[2018-11-17] MEDS: PREDNISOLONE ACETATE 1% OPHTH DROPS 1ML EACHEYE SCH ×2 (11:36→22:05)
[2018-11-17 12:00] VITALS: BP 142/79
[2018-11-17] MEDS ORDERED: SIMETHICONE 40 MG/0.6 ML 30ML ONE (13:46)
[2018-11-17] MEDS ORDERED: BACTERIOSTATIC SODIUM CHLORIDE 0.9% 30ML VIAL IJ ONE (13:46)
[2018-11-17] MEDS ORDERED: FENTANYL CITRATE/PF 50MCG/ML 2ML VIAL ONE (15:26)
[2018-11-17] MEDS ORDERED: MIDAZOLAM HCL 5 MG/5 ML VIAL ONE (15:26)
[2018-11-17] MEDS ORDERED: MIDAZOLAM HCL 2 MG/2 ML VIAL IV PRN (15:40)
[2018-11-17] MEDS: DIGOXIN 250MCG TABLET PO SCH (18:46)
[2018-11-17 20:00] VITALS: BP 122/63
[2018-11-17] MEDS: TAMSULOSIN HCL 0.4MG SR CAPSULE PO SCH (22:01)
[2018-11-18] VITALS: BP 106/61
[2018-11-18 04:00] VITALS: BP 112/59
[2018-11-18 08:00] VITALS: BP 117/66
[2018-11-18] MEDS: POTASSIUM CHLORIDE 10MEQ TABLET SR PO SCH ×2 (09:00→18:11)
[2018-11-18] MEDS: DOCUSATE SODIUM 250MG CAPSULE PO SCH (10:37)
[2018-11-18] MEDS: FUROSEMIDE 40MG TABLET PO SCH (10:37)
[2018-11-18] MEDS: GABAPENTIN 300MG CAPSULE PO SCH ×2 (10:37→20:57)
[2018-11-18] MEDS: FISH OIL/OMEGA-3 FATTY ACIDS 1000MG CAPSULE PO SCH (10:38)
[2018-11-18] MEDS: FERROUS SULFATE 325MG TABLET PO SCH ×2 (10:38→18:11)
[2018-11-18] MEDS: DICLOFENAC SODIUM 50MG EC TABLET PO SCH ×2 (10:38→20:57)
[2018-11-18] MEDS: PREDNISOLONE ACETATE 1% OPHTH DROPS 1ML EACHEYE SCH ×2 (10:40→20:57)
[2018-11-18 12:00] VITALS: BP 113/67
[2018-11-18] MEDS: NIFEDIPINE XL 60MG TAB PO SCH ×2 (13:00→20:58)
[2018-11-18] MEDS: CARVEDILOL 12.5MG TABLET PO SCH ×2 (13:00→20:58)
[2018-11-18 16:00] VITALS: BP 123/70
[2018-11-18] MEDS: DIGOXIN 250MCG TABLET PO SCH (18:11)
[2018-11-18 20:00] VITALS: BP 118/64
[2018-11-18] MEDS: TAMSULOSIN HCL 0.4MG SR CAPSULE PO SCH (20:58)
[2018-11-19] VITALS: BP 109/61
[2018-11-19 04:00] VITALS: BP 110/66
[2018-11-19 06:47] LABS: BASOPHILS % 0.7 % (0.0-2.0); EOSINOPHILS % 1.1 % (0.0-5.0); HEMOGLOBIN. 12.4 g/dL (14.0-18.0); LYMPHOCYTES % 31.2 % (20.0-50.0); MEAN CORPUSCULAR HEMOGLOBIN 31.8 pg (28.0-32.0); MEAN CORPUSCULAR VOLUME 94.9 fL (80.0-94.0); MEAN PLATELET VOLUME 9.1 fl (7.4-10.4); MONOCYTES % 12.8 % (2.0-8.0); NEUTROPHILS % 54.2 % (40.0-76.0); PLATELET 124 x1000/uL (130-400); RED CELL DISTRIBUTION WIDTH 13.7 % (11.6-14.6)
[2018-11-19 08:00] VITALS: BP 114/65
[2018-11-19] MEDS: FERROUS SULFATE 325MG TABLET PO SCH (09:44)
[2018-11-19] MEDS: FISH OIL/OMEGA-3 FATTY ACIDS 1000MG CAPSULE PO SCH (09:44)
[2018-11-19] MEDS: NIFEDIPINE XL 60MG TAB PO SCH (09:44)
[2018-11-19] MEDS: DICLOFENAC SODIUM 50MG EC TABLET PO SCH (09:44)
[2018-11-19] MEDS: POTASSIUM CHLORIDE 10MEQ TABLET SR PO SCH (09:45)
[2018-11-19] MEDS: CARVEDILOL 12.5MG TABLET PO SCH (09:45)
[2018-11-19] MEDS: FUROSEMIDE 40MG TABLET PO SCH (09:45)
[2018-11-19] MEDS: GABAPENTIN 300MG CAPSULE PO SCH (09:45)
[2018-11-19] MEDS: PREDNISOLONE ACETATE 1% OPHTH DROPS 1ML EACHEYE SCH (09:46)
[2018-11-19 12:00] VITALS: BP 108/57
[2018-11-19 13:38] VITALS: BP 108/57
== END 2018-11-19 14:33 | disposition home or self-care (01) | DRG 293 ==
LOC: ER 08:54 → 8WST 11:53 → ENRESERV 19:47
PROVIDERS: ADMIT Internal Medicine; ATTEND Internal Medicine
PROC: 0DB68ZX Excision of Stomach, Via Natural or Artificial Opening Endoscopic, Diagnostic (ICD-10-PCS; principal; 2018-11-17)
DX: I11.0 Hypertensive heart disease with heart failure (principal); K52.9 Noninfective gastroenteritis and colitis, unspecified; I50.43 Acute on chronic combined systolic (congestive) and diastolic (congestive) heart failure; I43 Cardiomyopathy in diseases classified elsewhere; D64.9 Anemia, unspecified; E11.9 Type 2 diabetes mellitus without complications; F32.9 Major depressive disorder, single episode, unspecified; F41.9 Anxiety disorder, unspecified; G89.29 Other chronic pain; H40.9 Unspecified glaucoma; I25.10 Atherosclerotic heart disease of native coronary artery without angina pectoris; I48.2 Chronic atrial fibrillation; J44.9 Chronic obstructive pulmonary disease, unspecified; K44.9 Diaphragmatic hernia without obstruction or gangrene; M54.5 Low back pain; K29.60 Other gastritis without bleeding; K57.30 Diverticulosis of large intestine without perforation or abscess without bleeding; G43.909 Migraine, unspecified, not intractable, without status migrainosus; K59.00 Constipation, unspecified; M10.9 Gout, unspecified; M19.90 Unspecified osteoarthritis, unspecified site; N40.0 Benign prostatic hyperplasia without lower urinary tract symptoms; Z96.641 Presence of right artificial hip joint; Z96.652 Presence of left artificial knee joint; Z87.891 Personal history of nicotine dependence; Z95.1 Presence of aortocoronary bypass graft; Z95.2 Presence of prosthetic heart valve; Z95.810 Presence of automatic (implantable) cardiac defibrillator; Z88.1 Allergy status to other antibiotic agents; Z79.899 Other long term (current) drug therapy; Z98.42 Cataract extraction status, left eye
CPT/HCPCS: 36415; 71045; 76705; 80048; 80162; 80305; 82040; 82962; 83735; 83880; 84484; 88305; 88312; 88313; 93005; 93970; 96374; 96375; 99285; J1940; J2250; J2405; J3010; J3490

== ENCOUNTER 2018-11-30 13:59 | Inpatient (IN) | payer MEDICARE, MEDICAID ==
[~2018-11-30] VITALS: Ht 170.2 cm; Wt 83.0 kg
[2018-11-30] MEDS ORDERED: SODIUM CHLORIDE 0.9% 1,000 ML IV ONE ×2 (14:39→18:45)
[2018-11-30 15:28] LABS: BASOPHILS % 0.7 % (0.0-2.0); EOSINOPHILS % 0.6 % (0.0-5.0); HEMATOCRIT. 38.8 % (42.0-52.0); MEAN CORPUSCULAR VOLUME 95.8 fL (80.0-94.0); MEAN PLATELET VOLUME 9.6 fl (7.4-10.4); MONOCYTES % 10.2 % (2.0-8.0); NEUTROPHILS % 57.5 % (40.0-76.0); PLATELET 175 x1000/uL (130-400); RED BLOOD CELL COUNT 4.05 mill/uL (4.7-6.1); RED CELL DISTRIBUTION WIDTH 13.6 % (11.6-14.6)
[2018-11-30 15:31] LABS: CHLORIDE 104 mEq/L (98-107)
[2018-11-30 16:58] LABS: CLARITY URINE CLEAR (CLEAR); COLOR URINE YELLOW (YELLOW); KETONES URINE NEGATIVE (NEGATIVE); LEUKOCYTE ESTERASE URINE TRACE (NEGATIVE); NITRITE URINE NEGATIVE (NEGATIVE); OCCULT BLOOD URINE NEGATIVE (NEGATIVE); PROTEIN URINE NEGATIVE (NEGATIVE); SPECIFIC GRAVITY URINE 1.009 (1.005-1.030)
[2018-11-30] MEDS ORDERED: ASPIRIN 81MG TABLET PO ONE (17:30)
[2018-11-30] MEDS ORDERED: BACITRACIN ZINC OINT UDPKT TOP ONE (19:01)
[2018-11-30 20:40] VITALS: BP 161/72
[2018-11-30 20:45] VITALS: BP 161/72
[2018-11-30] MEDS ORDERED: IPRATROPIUM/ALBUTEROL 0.5-3(2.5)MG/3ML NEB INH PRN (21:30)
[2018-11-30] MEDS ORDERED: ACETAMINOPHEN 325MG TABLET PO PRN (21:30)
[2018-11-30] MEDS ORDERED: GUAIFENESIN 200MG/10ML SUGAR FREE UDC PO PRN (21:30)
[2018-11-30] MEDS ORDERED: DOCUSATE SODIUM 100MG CAPSULE PO PRN (21:30)
[2018-11-30] MEDS ORDERED: ONDANSETRON HCL 4MG/2ML INJ IV PRN (21:30)
[2018-11-30] MEDS: DEXT 5%/0.45% NACL 1000ML 1,000 ML IV SCH (22:51)
[2018-11-30] MEDS: PREDNISOLONE ACETATE 1% OPHTH DROPS 1ML EACHEYE SCH (23:41)
[2018-11-30] MEDS: HYDRALAZINE HCL 50MG TABLET PO SCH (23:41)
[2018-12-01] VITALS: BP 120/63
[2018-12-01 04:00] VITALS: BP 122/65
[2018-12-01 05:48] LABS: EOSINOPHILS % 1.4 % (0.0-5.0); HEMOGLOBIN. 12.8 g/dL (14.0-18.0); LYMPHOCYTES % 35.9 % (20.0-50.0); MEAN CORPUSCULAR HEMOGLOBIN 32.3 pg (28.0-32.0); MEAN CORPUSCULAR VOLUME 95.8 fL (80.0-94.0); MEAN PLATELET VOLUME 9.3 fl (7.4-10.4); MONOCYTES % 12.2 % (2.0-8.0); NEUTROPHILS % 49.5 % (40.0-76.0); PLATELET 126 x1000/uL (130-400); RED BLOOD CELL COUNT 3.97 mill/uL (4.7-6.1); RED CELL DISTRIBUTION WIDTH 13.3 % (11.6-14.6)
[2018-12-01 06:25] LABS: CHLORIDE 106 mEq/L (98-107)
[2018-12-01 06:26] LABS: VITAMIN B12 SERUM 269 pg/mL (211-911)
[2018-12-01 06:41] LABS: T4 FREE 1.37 ng/dL (0.76-1.46)
[2018-12-01 06:50] LABS: DIGOXIN 1.1 ng/mL (0.9-2.0)
[2018-12-01] MEDS: HYDRALAZINE HCL 50MG TABLET PO SCH ×4 (08:29→21:00)
[2018-12-01] MEDS: FISH OIL/OMEGA-3 FATTY ACIDS 1000MG CAPSULE PO SCH (08:29)
[2018-12-01] MEDS: CARVEDILOL 12.5MG TABLET PO SCH ×2 (08:29→21:00)
[2018-12-01 08:30] VITALS: BP 141/71
[2018-12-01] MEDS: TAMSULOSIN HCL 0.4MG SR CAPSULE PO SCH (08:30)
[2018-12-01] MEDS: PREDNISOLONE ACETATE 1% OPHTH DROPS 1ML EACHEYE SCH ×2 (08:30→21:54)
[2018-12-01] MEDS ORDERED: CLONIDINE HCL 0.3MG/24HR PATCH TD SCH (09:00)
[2018-12-01 12:00] VITALS: BP 137/77
[2018-12-01] MEDS ORDERED: ENOXAPARIN 40MG/0.4ML SYR SUBCUT SCH (12:00)
[2018-12-01] MEDS ORDERED: ENOXAPARIN 30MG/0.3ML SYR SUBCUT SCH (12:30)
[2018-12-01] MEDS: DEXT 5%/0.45% NACL 1000ML 1,000 ML IV SCH (14:24)
[2018-12-01 16:18] VITALS: BP 108/57
[2018-12-01] MEDS: DIGOXIN 125MCG TABLET PO SCH (17:36)
[2018-12-01] MEDS ORDERED: DIGOXIN 250MCG TABLET PO SCH (18:00)
[2018-12-01 20:00] VITALS: BP_SYST 109; BP_SYST 145; BP_DIAS 58; BP_DIAS 90
[2018-12-02] VITALS: BP 132/59
[2018-12-02 04:00] VITALS: BP 151/74
[2018-12-02] MEDS: DEXT 5%/0.45% NACL 1000ML 1,000 ML IV SCH (06:00)
[2018-12-02 08:00] VITALS: BP 111/72
[2018-12-02] MEDS: HYDRALAZINE HCL 50MG TABLET PO SCH ×4 (08:37→20:25)
[2018-12-02] MEDS: CARVEDILOL 12.5MG TABLET PO SCH ×3 (08:37→20:25)
[2018-12-02] MEDS: FISH OIL/OMEGA-3 FATTY ACIDS 1000MG CAPSULE PO SCH (08:50)
[2018-12-02] MEDS: TAMSULOSIN HCL 0.4MG SR CAPSULE PO SCH (08:51)
[2018-12-02] MEDS: PREDNISOLONE ACETATE 1% OPHTH DROPS 1ML EACHEYE SCH ×2 (08:52→20:26)
[2018-12-02] MEDS: ENOXAPARIN 30MG/0.3ML SYR SUBCUT SCH (11:26)
[2018-12-02 12:00] VITALS: BP 134/81
[2018-12-02 16:00] VITALS: BP 152/71
[2018-12-02] MEDS: DIGOXIN 125MCG TABLET PO SCH (17:42)
[2018-12-02 20:00] VITALS: BP 159/69
[2018-12-02] MEDS ORDERED: MAGNESIUM/ALUMINUM HYDROXIDE/SIMETHICONE 30ML UDC PO PRN (20:15)
[2018-12-03] VITALS: BP 121/65
[2018-12-03] MEDS: DEXT 5%/0.45% NACL 1000ML 1,000 ML IV SCH (01:33)
[2018-12-03 04:00] VITALS: BP 157/76
[2018-12-03 06:23] LABS: BASOPHILS % 0.7 % (0.0-2.0); EOSINOPHILS % 0.7 % (0.0-5.0); HEMATOCRIT. 36.4 % (42.0-52.0); HEMOGLOBIN. 12.1 g/dL (14.0-18.0); LYMPHOCYTES % 34.9 % (20.0-50.0); MEAN CORPUSCULAR HEMOGLOBIN 31.6 pg (28.0-32.0); MEAN PLATELET VOLUME 8.9 fl (7.4-10.4); MONOCYTES % 11.7 % (2.0-8.0); PLATELET 122 x1000/uL (130-400); RED BLOOD CELL COUNT 3.83 mill/uL (4.7-6.1); RED CELL DISTRIBUTION WIDTH 13.5 % (11.6-14.6)
[2018-12-03 08:00] VITALS: BP 163/72
[2018-12-03] MEDS: FISH OIL/OMEGA-3 FATTY ACIDS 1000MG CAPSULE PO SCH (08:42)
[2018-12-03] MEDS: TAMSULOSIN HCL 0.4MG SR CAPSULE PO SCH (08:42)
[2018-12-03] MEDS: CARVEDILOL 12.5MG TABLET PO SCH (08:43)
[2018-12-03] MEDS: HYDRALAZINE HCL 50MG TABLET PO SCH ×2 (08:43→13:00)
[2018-12-03] MEDS: ENOXAPARIN 30MG/0.3ML SYR SUBCUT SCH (08:43)
[2018-12-03] MEDS: PREDNISOLONE ACETATE 1% OPHTH DROPS 1ML EACHEYE SCH (08:43)
[2018-12-03 13:07] VITALS: BP 126/66
[2018-12-04] MEDS ORDERED: ENOXAPARIN 40MG/0.4ML SYR SUBCUT SCH (09:00)
== END 2018-12-03 13:41 | disposition home health service (06) | DRG 682 ==
LOC: ER 13:59 → 8WST 18:37 → EDBEDREQSVC 18:42 → EDBEDREQ 18:55 → ENRESERV 19:52
PROVIDERS: ADMIT Internal Medicine; ATTEND Internal Medicine
PROC: 4B02XTZ Measurement of Cardiac Defibrillator, External Approach (ICD-10-PCS; principal; 2018-12-02)
DX: N17.9 Acute kidney failure, unspecified (principal); K57.91 Diverticulosis of intestine, part unspecified, without perforation or abscess with bleeding; I50.43 Acute on chronic combined systolic (congestive) and diastolic (congestive) heart failure; I43 Cardiomyopathy in diseases classified elsewhere; I11.0 Hypertensive heart disease with heart failure; I95.9 Hypotension, unspecified; E86.0 Dehydration; R07.9 Chest pain, unspecified; D64.89 Other specified anemias; E78.00 Pure hypercholesterolemia, unspecified; F41.9 Anxiety disorder, unspecified; G89.29 Other chronic pain; H40.9 Unspecified glaucoma; I25.10 Atherosclerotic heart disease of native coronary artery without angina pectoris; I35.0 Nonrheumatic aortic (valve) stenosis; I48.2 Chronic atrial fibrillation; J44.9 Chronic obstructive pulmonary disease, unspecified; K21.9 Gastro-esophageal reflux disease without esophagitis; L91.0 Hypertrophic scar; K59.00 Constipation, unspecified; M10.9 Gout, unspecified; M19.90 Unspecified osteoarthritis, unspecified site; N40.1 Benign prostatic hyperplasia with lower urinary tract symptoms; Z96.641 Presence of right artificial hip joint; Z96.652 Presence of left artificial knee joint; G43.909 Migraine, unspecified, not intractable, without status migrainosus; H26.9 Unspecified cataract; N28.9 Disorder of kidney and ureter, unspecified; M54.5 Low back pain; Z88.1 Allergy status to other antibiotic agents; Z87.891 Personal history of nicotine dependence; Z95.0 Presence of cardiac pacemaker; Z95.1 Presence of aortocoronary bypass graft; Z95.2 Presence of prosthetic heart valve; Z79.899 Other long term (current) drug therapy
CPT/HCPCS: 36415; 71045; 80048; 80162; 82607; 83735; 83880; 84439; 84484; 93005; 93970; 96360; 99291; J1650; J2405; J7030

== ENCOUNTER 2018-12-31 11:07 | Emergency (ER) | payer MEDICARE, MEDICAID ==
[~2018-12-31] VITALS: Ht 170.2 cm; Wt 86.0 kg
[2018-12-31 12:11] LABS: BASOPHILS % 1.2 % (0.0-2.0); EOSINOPHILS % 0.6 % (0.0-5.0); HEMATOCRIT. 36.9 % (42.0-52.0); HEMOGLOBIN. 12.4 g/dL (14.0-18.0); LYMPHOCYTES % 29.3 % (20.0-50.0); MEAN CORPUSCULAR VOLUME 95.2 fL (80.0-94.0); MEAN PLATELET VOLUME 8.5 fl (7.4-10.4); MONOCYTES % 10.1 % (2.0-8.0); NEUTROPHILS % 58.8 % (40.0-76.0); PLATELET 117 x1000/uL (130-400); RED BLOOD CELL COUNT 3.87 mill/uL (4.7-6.1); RED CELL DISTRIBUTION WIDTH 13.7 % (11.6-14.6)
[2018-12-31 12:18] LABS: CHLORIDE 111 mEq/L (98-107); INR 1.1; PROTHROMBIN TIME 11.7 sec (9.6-11.0)
[2018-12-31 15:00] VITALS: BP 151/80
== END 2018-12-31 15:00 | disposition home or self-care (01) ==
LOC: ER 11:07
DX: R07.89 Other chest pain (principal); R06.02 Shortness of breath; I10 Essential (primary) hypertension; Z95.0 Presence of cardiac pacemaker; Z79.899 Other long term (current) drug therapy; Z88.1 Allergy status to other antibiotic agents
CPT/HCPCS: 36415; 71045; 84484; 93005; 99284

== ENCOUNTER 2019-01-20 01:29 | Inpatient (IN) | payer MEDICARE, MEDICAID ==
[~2019-01-20] VITALS: Ht 170.2 cm; Wt 91.2 kg
[~2019-01-20 01:29] MED LIST changes: -LOSA100T14 PO; +LOSA100T32 PO
[2019-01-20 08:37] LABS: BASOPHILS % 0.4 % (0.0-2.0); EOSINOPHILS % 0.6 % (0.0-5.0); HEMATOCRIT. 37.6 % (42.0-52.0); HEMOGLOBIN. 12.4 g/dL (14.0-18.0); LYMPHOCYTES % 24.7 % (20.0-50.0); MEAN CORPUSCULAR HEMOGLOBIN 31.8 pg (28.0-32.0); MEAN PLATELET VOLUME 8.6 fl (7.4-10.4); MONOCYTES % 9.3 % (2.0-8.0); PLATELET 158 x1000/uL (130-400); RED BLOOD CELL COUNT 3.92 mill/uL (4.7-6.1); RED CELL DISTRIBUTION WIDTH 13.9 % (11.6-14.6)
[2019-01-20 08:53] LABS: CHLORIDE 108 mEq/L (98-107)
[2019-01-20 08:55] LABS: CLARITY URINE CLEAR (CLEAR); COLOR URINE YELLOW (YELLOW); KETONES URINE NEGATIVE (NEGATIVE); LEUKOCYTE ESTERASE URINE NEGATIVE (NEGATIVE); NITRITE URINE NEGATIVE (NEGATIVE); OCCULT BLOOD URINE NEGATIVE (NEGATIVE); PH URINE 7.5 (4.5-8.0); PROTEIN URINE NEGATIVE (NEGATIVE); SPECIFIC GRAVITY URINE 1.011 (1.005-1.030)
[2019-01-20 09:11] LABS: *AMPHETAMINES SCREEN URINE NEGATIVE (NEGATIVE); *BARBITURATES SCREEN URINE NEGATIVE (NEGATIVE); *BENZODIAZEPINES SCREEN URINE NEGATIVE (NEGATIVE); *COCAINE SCREEN URINE NEGATIVE (NEGATIVE)
[2019-01-20 09:12] LABS: CANNABINOID URINE SCREEN NEGATIVE (NEGATIVE); METHADONE URINE SCREEN NEGATIVE (NEGATIVE); OPIATES URINE SCREEN NEGATIVE (NEGATIVE); PHENCYCLIDINE URINE SCREEN NEGATIVE (NEGATIVE)
[2019-01-20 13:19] VITALS: BP 165/71
[2019-01-20 16:00] VITALS: BP 160/81
[2019-01-20] MEDS ORDERED: GUAIFENESIN 200MG/10ML SUGAR FREE UDC PO PRN (17:15)
[2019-01-20] MEDS ORDERED: IPRATROPIUM/ALBUTEROL 0.5-3(2.5)MG/3ML NEB INH PRN (17:15)
[2019-01-20] MEDS ORDERED: DOCUSATE SODIUM 100MG CAPSULE PO PRN (17:15)
[2019-01-20] MEDS ORDERED: ACETAMINOPHEN 325MG TABLET PO PRN (17:15)
[2019-01-20] MEDS ORDERED: ONDANSETRON HCL 4MG/2ML INJ IV PRN (17:15)
[2019-01-20] MEDS ORDERED: CLONIDINE 0.1MG TABLET PO PRN (17:15)
[2019-01-20] MEDS ORDERED: FUROSEMIDE 40MG TABLET PO NR (17:45)
[2019-01-20] MEDS: GABAPENTIN 300MG CAPSULE PO SCH (17:59)
[2019-01-20] MEDS: DIGOXIN 250MCG TABLET PO SCH (17:59)
[2019-01-20] MEDS ORDERED: NON FORMULARY PATIENT HOME MED PO SCH (19:45)
[2019-01-20 20:00] VITALS: BP 130/60
[2019-01-20] MEDS: CARVEDILOL 12.5MG TABLET PO SCH (22:16)
[2019-01-20] MEDS: SACUBITRIL/VALSARTAN 49MG/51MG TABLET PO SCH (22:16)
[2019-01-21] VITALS: BP 140/70
[2019-01-21 04:00] VITALS: BP 150/60
[2019-01-21] MEDS: GABAPENTIN 300MG CAPSULE PO SCH ×2 (05:55→17:48)
[2019-01-21 07:15] LABS: BASOPHILS % 0.7 % (0.0-2.0); EOSINOPHILS % 1.5 % (0.0-5.0); HEMATOCRIT. 33.1 % (42.0-52.0); HEMOGLOBIN. 11.3 g/dL (14.0-18.0); LYMPHOCYTES % 32.5 % (20.0-50.0); MEAN CORPUSCULAR HEMOGLOBIN 32.4 pg (28.0-32.0); MEAN CORPUSCULAR VOLUME 95.1 fL (80.0-94.0); MEAN PLATELET VOLUME 8.8 fl (7.4-10.4); MONOCYTES % 12.3 % (2.0-8.0); PLATELET 155 x1000/uL (130-400); RED BLOOD CELL COUNT 3.48 mill/uL (4.7-6.1)
[2019-01-21 08:00] VITALS: BP 166/86
[2019-01-21 08:15] LABS: CHLORIDE 110 mEq/L (98-107)
[2019-01-21] MEDS: CARVEDILOL 12.5MG TABLET PO SCH ×2 (08:41→20:50)
[2019-01-21] MEDS: POTASSIUM CHLORIDE 10MEQ TABLET SR PO SCH ×2 (08:41→17:48)
[2019-01-21] MEDS: SACUBITRIL/VALSARTAN 49MG/51MG TABLET PO SCH ×2 (08:42→20:50)
[2019-01-21] MEDS: TAMSULOSIN HCL 0.4MG SR CAPSULE PO SCH (08:42)
[2019-01-21] MEDS ORDERED: CLONIDINE HCL 0.3MG/24HR PATCH TD SCH (09:00)
[2019-01-21 12:00] VITALS: BP 130/73
[2019-01-21 16:00] VITALS: BP 116/77
[2019-01-21] MEDS: DIGOXIN 250MCG TABLET PO SCH (17:48)
[2019-01-21 20:00] VITALS: BP 132/70
[2019-01-22] VITALS: BP 145/69
[2019-01-22 04:00] VITALS: BP 164/76
[2019-01-22] MEDS: GABAPENTIN 300MG CAPSULE PO SCH (04:38)
[2019-01-22 06:30] LABS: BASOPHILS % 0.7 % (0.0-2.0); EOSINOPHILS % 1.7 % (0.0-5.0); HEMATOCRIT. 33.4 % (42.0-52.0); HEMOGLOBIN. 11.3 g/dL (14.0-18.0); LYMPHOCYTES % 32.4 % (20.0-50.0); MEAN CORPUSCULAR HEMOGLOBIN 32.2 pg (28.0-32.0); MEAN CORPUSCULAR VOLUME 95.4 fL (80.0-94.0); MEAN PLATELET VOLUME 8.7 fl (7.4-10.4); MONOCYTES % 11.4 % (2.0-8.0); NEUTROPHILS % 53.8 % (40.0-76.0); PLATELET 160 x1000/uL (130-400); RED BLOOD CELL COUNT 3.51 mill/uL (4.7-6.1); RED CELL DISTRIBUTION WIDTH 14.1 % (11.6-14.6)
[2019-01-22 06:47] LABS: CHLORIDE 110 mEq/L (98-107)
[2019-01-22 07:10] LABS: DIGOXIN 1.6 ng/mL (0.9-2.0)
[2019-01-22 08:00] VITALS: BP 136/72
[2019-01-22] MEDS: TAMSULOSIN HCL 0.4MG SR CAPSULE PO SCH (08:26)
[2019-01-22] MEDS: CARVEDILOL 12.5MG TABLET PO SCH (08:26)
[2019-01-22] MEDS: SACUBITRIL/VALSARTAN 49MG/51MG TABLET PO SCH (08:26)
[2019-01-22] MEDS: POTASSIUM CHLORIDE 10MEQ TABLET SR PO SCH (08:26)
[2019-01-22 12:00] VITALS: BP_SYST 136; BP_SYST 150; BP_DIAS 72; BP_DIAS 81
[2019-01-22 14:10] VITALS: BP 150/81
== END 2019-01-22 15:10 | disposition home health service (06) | DRG 292 ==
LOC: ER 02:36 → EDBEDREQ 11:21 → 5WST 11:58 → ENRESERV 12:27
PROVIDERS: ADMIT Internal Medicine; ATTEND Internal Medicine
DX: I11.0 Hypertensive heart disease with heart failure (principal); K92.2 Gastrointestinal hemorrhage, unspecified; I50.43 Acute on chronic combined systolic (congestive) and diastolic (congestive) heart failure; I43 Cardiomyopathy in diseases classified elsewhere; J44.9 Chronic obstructive pulmonary disease, unspecified; D64.9 Anemia, unspecified; H40.9 Unspecified glaucoma; H18.419 Arcus senilis, unspecified eye; I25.10 Atherosclerotic heart disease of native coronary artery without angina pectoris; I35.0 Nonrheumatic aortic (valve) stenosis; I48.2 Chronic atrial fibrillation; K57.90 Diverticulosis of intestine, part unspecified, without perforation or abscess without bleeding; K59.00 Constipation, unspecified; L91.0 Hypertrophic scar; M10.9 Gout, unspecified; M19.90 Unspecified osteoarthritis, unspecified site; N20.0 Calculus of kidney; G43.909 Migraine, unspecified, not intractable, without status migrainosus; Z96.652 Presence of left artificial knee joint; R10.9 Unspecified abdominal pain; R07.89 Other chest pain; Z96.641 Presence of right artificial hip joint; N40.0 Benign prostatic hyperplasia without lower urinary tract symptoms; Z87.891 Personal history of nicotine dependence; Z95.1 Presence of aortocoronary bypass graft; Z95.2 Presence of prosthetic heart valve; Z88.8 Allergy status to other drugs, medicaments and biological substances; Z95.0 Presence of cardiac pacemaker; Z79.899 Other long term (current) drug therapy
CPT/HCPCS: 36415; 71045; 74176; 80048; 80162; 80305; 82040; 83605; 83880; 84484; 87015; 87045; 87427; 87449; 93005; 93970; 99285

== ENCOUNTER 2019-03-02 13:09 | Inpatient (IN) | payer MEDICARE, MEDICAID ==
[~2019-03-02] VITALS: Ht 170.2 cm; Wt 83.2 kg
[~2019-03-02 13:09] MED LIST changes: -CLONIDINE PATCH TD; -[UNRECOGNIZED DRUG - REMARK]
[2019-03-02 15:18] LABS: EOSINOPHILS % 1.4 % (0.0-5.0); HEMATOCRIT. 30.2 % (42.0-52.0); LYMPHOCYTES % 24.5 % (20.0-50.0); MEAN CORPUSCULAR HEMOGLOBIN 31.6 pg (28.0-32.0); MEAN CORPUSCULAR VOLUME 95.5 fL (80.0-94.0); MEAN PLATELET VOLUME 8.7 fl (7.4-10.4); MONOCYTES % 11.1 % (2.0-8.0); PLATELET 216 x1000/uL (130-400); RED BLOOD CELL COUNT 3.16 mill/uL (4.7-6.1); RED CELL DISTRIBUTION WIDTH 13.9 % (11.6-14.6)
[2019-03-02 15:25] LABS: CHLORIDE 108 mEq/L (98-107)
[2019-03-02] MEDS ORDERED: ALBUTEROL (0.083%) 2.5MG/3ML NEB HHN STA (15:45)
[2019-03-02 15:47] LABS: DIGOXIN 0.2 ng/mL (0.9-2.0)
[2019-03-02] MEDS ORDERED: FUROSEMIDE 40MG/4ML VIAL IVP ONE (16:00)
[2019-03-02] MEDS ORDERED: ALBUTEROL (0.083%) 2.5MG/3ML NEB ONE (16:00)
[2019-03-02 20:00] VITALS: BP 131/79
[2019-03-02] MEDS ORDERED: CLONIDINE 0.1MG TABLET PO PRN (22:15)
[2019-03-02] MEDS ORDERED: ONDANSETRON HCL 4MG/2ML INJ IV PRN (22:15)
[2019-03-02] MEDS ORDERED: DOCUSATE SODIUM 100MG CAPSULE PO PRN (22:15)
[2019-03-02] MEDS ORDERED: GUAIFENESIN 200MG/10ML SUGAR FREE UDC PO PRN (22:15)
[2019-03-02 22:30] VITALS: BP 121/79
[2019-03-02] MEDS: IPRATROPIUM/ALBUTEROL 0.5-3(2.5)MG/3ML NEB INH PRN (23:38)
[2019-03-03] VITALS: BP 129/75
[2019-03-03] MEDS: DIGOXIN 250MCG TABLET PO SCH ×2 (00:09→17:36)
[2019-03-03] MEDS: GABAPENTIN 300MG CAPSULE PO SCH ×3 (00:10→21:35)
[2019-03-03] MEDS: PREDNISOLONE ACETATE 1% OPHTH DROPS 1ML EACHEYE SCH ×2 (00:12→09:14)
[2019-03-03] MEDS: TAMSULOSIN HCL 0.4MG SR CAPSULE PO SCH ×2 (00:17→09:20)
[2019-03-03 04:00] VITALS: BP 130/72
[2019-03-03] MEDS: IPRATROPIUM/ALBUTEROL 0.5-3(2.5)MG/3ML NEB INH PRN (04:31)
[2019-03-03 07:03] LABS: BASOPHILS % 0.6 % (0.0-2.0); EOSINOPHILS % 1.5 % (0.0-5.0); HEMATOCRIT. 28.3 % (42.0-52.0); HEMOGLOBIN. 9.6 g/dL (14.0-18.0); LYMPHOCYTES % 26.1 % (20.0-50.0); MEAN CORPUSCULAR HEMOGLOBIN 32.2 pg (28.0-32.0); MEAN CORPUSCULAR VOLUME 95.2 fL (80.0-94.0); MEAN PLATELET VOLUME 8.1 fl (7.4-10.4); MONOCYTES % 11.3 % (2.0-8.0); NEUTROPHILS % 60.5 % (40.0-76.0); PLATELET 193 x1000/uL (130-400); RED BLOOD CELL COUNT 2.97 mill/uL (4.7-6.1); RED CELL DISTRIBUTION WIDTH 13.8 % (11.6-14.6)
[2019-03-03 07:06] LABS: CHLORIDE 111 mEq/L (98-107)
[2019-03-03] MEDS ORDERED: FUROSEMIDE 40MG TABLET PO SCH (09:00)
[2019-03-03] MEDS ORDERED: POTASSIUM CHLORIDE 10MEQ TABLET SR PO SCH (09:00)
[2019-03-03] MEDS: CARVEDILOL 12.5MG TABLET PO SCH ×2 (09:16→21:39)
[2019-03-03] MEDS: FISH OIL/OMEGA-3 FATTY ACIDS 1000MG CAPSULE PO SCH (09:16)
[2019-03-03] MEDS ORDERED: CLONIDINE HCL 0.3MG/24HR PATCH TD SCH (13:00)
[2019-03-03] MEDS: FUROSEMIDE 40MG/4ML VIAL IVP SCH ×2 (17:36→17:37)
[2019-03-04] VITALS: BP 165/75
[2019-03-04 04:00] VITALS: BP 167/92
[2019-03-04] MEDS: FUROSEMIDE 40MG/4ML VIAL IVP SCH ×2 (06:25→17:14)
[2019-03-04 08:00] VITALS: BP 143/73
[2019-03-04 08:29] LABS: CHLORIDE 108 mEq/L (98-107)
[2019-03-04] MEDS: FISH OIL/OMEGA-3 FATTY ACIDS 1000MG CAPSULE PO SCH (08:50)
[2019-03-04] MEDS: POTASSIUM CHLORIDE 10MEQ TABLET SR PO SCH (08:50)
[2019-03-04] MEDS: CARVEDILOL 12.5MG TABLET PO SCH ×2 (08:51→22:38)
[2019-03-04] MEDS: TAMSULOSIN HCL 0.4MG SR CAPSULE PO SCH (08:59)
[2019-03-04] MEDS: PREDNISOLONE ACETATE 1% OPHTH DROPS 1ML EACHEYE SCH ×3 (09:02→22:38)
[2019-03-04] MEDS: IPRATROPIUM/ALBUTEROL 0.5-3(2.5)MG/3ML NEB INH PRN (09:41)
[2019-03-04 12:00] VITALS: BP 147/65
[2019-03-04] MEDS: GABAPENTIN 300MG CAPSULE PO SCH ×2 (12:29→22:38)
[2019-03-04 15:52] LABS: CHLORIDE 107 mEq/L (98-107)
[2019-03-04 16:00] VITALS: BP 151/80
[2019-03-04] MEDS: ACETAMINOPHEN 325MG TABLET PO PRN (17:14)
[2019-03-04] MEDS: DIGOXIN 250MCG TABLET PO SCH (17:14)
[2019-03-04 20:00] VITALS: BP 144/74
[2019-03-05] VITALS: BP 129/70
[2019-03-05 04:00] VITALS: BP 139/61
[2019-03-05] MEDS: FUROSEMIDE 40MG/4ML VIAL IVP SCH (06:56)
[2019-03-05 07:05] LABS: BASOPHILS % 0.5 % (0.0-2.0); EOSINOPHILS % 1.6 % (0.0-5.0); HEMATOCRIT. 31.7 % (42.0-52.0); HEMOGLOBIN. 10.7 g/dL (14.0-18.0); LYMPHOCYTES % 19.2 % (20.0-50.0); MEAN CORPUSCULAR HEMOGLOBIN 32.2 pg (28.0-32.0); MEAN CORPUSCULAR VOLUME 95.3 fL (80.0-94.0); MEAN PLATELET VOLUME 7.8 fl (7.4-10.4); MONOCYTES % 8.8 % (2.0-8.0); NEUTROPHILS % 69.9 % (40.0-76.0); PLATELET 231 x1000/uL (130-400); RED BLOOD CELL COUNT 3.33 mill/uL (4.7-6.1); RED CELL DISTRIBUTION WIDTH 13.3 % (11.6-14.6)
[2019-03-05 08:06] VITALS: BP 174/75
[2019-03-05] MEDS: POTASSIUM CHLORIDE 10MEQ TABLET SR PO SCH (08:25)
[2019-03-05] MEDS: FISH OIL/OMEGA-3 FATTY ACIDS 1000MG CAPSULE PO SCH (08:25)
[2019-03-05] MEDS: ACETAMINOPHEN 325MG TABLET PO PRN (08:25)
[2019-03-05] MEDS: CARVEDILOL 12.5MG TABLET PO SCH (08:26)
[2019-03-05] MEDS: TAMSULOSIN HCL 0.4MG SR CAPSULE PO SCH (08:28)
[2019-03-05] MEDS: PREDNISOLONE ACETATE 1% OPHTH DROPS 1ML EACHEYE SCH (08:32)
[2019-03-05] MEDS: GABAPENTIN 300MG CAPSULE PO SCH (11:13)
[2019-03-05 11:31] VITALS: BP 177/83
[2019-03-05 12:00] VITALS: BP 177/83
== END 2019-03-05 12:02 | disposition home or self-care (01) | DRG 377 ==
LOC: ER 13:09 → 7WST 16:12 → EDBEDREQ 16:21 → ENRESERV 17:42
PROVIDERS: ADMIT Internal Medicine; ATTEND Internal Medicine
DX: K92.2 Gastrointestinal hemorrhage, unspecified (principal); I50.43 Acute on chronic combined systolic (congestive) and diastolic (congestive) heart failure; I43 Cardiomyopathy in diseases classified elsewhere; K57.90 Diverticulosis of intestine, part unspecified, without perforation or abscess without bleeding; I11.0 Hypertensive heart disease with heart failure; D64.9 Anemia, unspecified; I25.10 Atherosclerotic heart disease of native coronary artery without angina pectoris; J44.9 Chronic obstructive pulmonary disease, unspecified; M19.90 Unspecified osteoarthritis, unspecified site; N40.1 Benign prostatic hyperplasia with lower urinary tract symptoms; Z96.641 Presence of right artificial hip joint; Z96.652 Presence of left artificial knee joint; I48.2 Chronic atrial fibrillation; H40.9 Unspecified glaucoma; F32.9 Major depressive disorder, single episode, unspecified; I35.0 Nonrheumatic aortic (valve) stenosis; K59.00 Constipation, unspecified; K64.9 Unspecified hemorrhoids; G89.29 Other chronic pain; L91.0 Hypertrophic scar; M10.9 Gout, unspecified; Z87.891 Personal history of nicotine dependence; Z95.1 Presence of aortocoronary bypass graft; Z95.2 Presence of prosthetic heart valve; Z88.1 Allergy status to other antibiotic agents; Z79.899 Other long term (current) drug therapy; Z82.49 Family history of ischemic heart disease and other diseases of the circulatory system; Z95.810 Presence of automatic (implantable) cardiac defibrillator; R35.1 Nocturia; Z98.42 Cataract extraction status, left eye
CPT/HCPCS: 36415; 71045; 80048; 80162; 82040; 83735; 83880; 84484; 87493; 93005; 94640; 96374; 96375; 96376; 99285; J1940; J7611; J7620

== ENCOUNTER 2019-05-12 22:30 | Inpatient (IN) | payer MEDICARE, MEDICAID ==
[~2019-05-12] VITALS: Ht 170.2 cm; Wt 86.6 kg
[~2019-05-12 22:30] MED LIST changes: -COLC0.6T66 PO; -DIGO250T4 PO; -LOSA100T32 PO; -PRED5DRO7 EACHEYE
[2019-05-12 23:47] LABS: BASOPHILS % 0.6 % (0.0-2.0); EOSINOPHILS % 1.1 % (0.0-5.0); HEMATOCRIT. 35.1 % (42.0-52.0); HEMOGLOBIN. 11.7 g/dL (14.0-18.0); LYMPHOCYTES % 17.3 % (20.0-50.0); MEAN CORPUSCULAR VOLUME 95.8 fL (80.0-94.0); MEAN PLATELET VOLUME 8.1 fl (7.4-10.4); MONOCYTES % 8.8 % (2.0-8.0); NEUTROPHILS % 72.2 % (40.0-76.0); PLATELET 146 x1000/uL (130-400); RED BLOOD CELL COUNT 3.67 mill/uL (4.7-6.1); RED CELL DISTRIBUTION WIDTH 14.1 % (11.6-14.6)
[2019-05-13 00:35] LABS: CHLORIDE 110 mEq/L (98-107)
[2019-05-13] MEDS ORDERED: AMLODIPINE 10MG TABLET PO ONE (07:30)
[2019-05-13 10:00] VITALS: BP 170/81
[2019-05-13 12:20] VITALS: BP 176/90
[2019-05-13] MEDS ORDERED: GUAIFENESIN 200MG/10ML SUGAR FREE UDC PO PRN (13:45)
[2019-05-13] MEDS ORDERED: ONDANSETRON HCL 4MG/2ML INJ IV PRN (13:45)
[2019-05-13 15:52] VITALS: BP 148/76
[2019-05-13] MEDS ORDERED: NON FORMULARY PATIENT HOME MED PO SCH (17:00)
[2019-05-13] MEDS: ACETAMINOPHEN 325MG TABLET PO PRN (18:18)
[2019-05-13] MEDS: SACUBITRIL/VALSARTAN 49MG/51MG TABLET PO SCH (18:19)
[2019-05-13] MEDS: TAMSULOSIN HCL 0.4MG SR CAPSULE PO SCH (22:41)
[2019-05-13] MEDS: CARVEDILOL 12.5MG TABLET PO SCH (22:42)
[2019-05-14] VITALS (8 sets, daily range): BP systolic 137–190; BP diastolic 69–85
[2019-05-14] MEDS: CLONIDINE 0.1MG TABLET PO PRN ×2 (03:15→15:52)
[2019-05-14] MEDS: ACETAMINOPHEN 325MG TABLET PO PRN (03:16)
[2019-05-14 06:43] LABS: BASOPHILS % 0.6 % (0.0-2.0); EOSINOPHILS % 1.8 % (0.0-5.0); HEMATOCRIT. 33.5 % (42.0-52.0); HEMOGLOBIN. 11.3 g/dL (14.0-18.0); LYMPHOCYTES % 25.5 % (20.0-50.0); MEAN CORPUSCULAR HEMOGLOBIN 31.9 pg (28.0-32.0); MEAN CORPUSCULAR VOLUME 94.8 fL (80.0-94.0); MEAN PLATELET VOLUME 8.6 fl (7.4-10.4); MONOCYTES % 10.2 % (2.0-8.0); NEUTROPHILS % 61.9 % (40.0-76.0); PLATELET 142 x1000/uL (130-400); RED BLOOD CELL COUNT 3.54 mill/uL (4.7-6.1); RED CELL DISTRIBUTION WIDTH 14.3 % (11.6-14.6)
[2019-05-14 06:58] LABS: CHLORIDE 110 mEq/L (98-107)
[2019-05-14] MEDS: SACUBITRIL/VALSARTAN 49MG/51MG TABLET PO SCH ×2 (09:21→18:45)
[2019-05-14] MEDS: CARVEDILOL 12.5MG TABLET PO SCH ×2 (09:22→21:34)
[2019-05-14] MEDS ORDERED: CLON1PAT11 TP (15:40)
[2019-05-14] MEDS ORDERED: CLONIDINE HCL 0.3MG/24HR PATCH TOP SCH (21:00)
[2019-05-14] MEDS: TAMSULOSIN HCL 0.4MG SR CAPSULE PO SCH (21:34)
[2019-05-15] VITALS: BP 154/87
[2019-05-15 04:00] VITALS: BP 164/84
[2019-05-15 07:59] VITALS: BP 175/83
[2019-05-15] MEDS: SACUBITRIL/VALSARTAN 49MG/51MG TABLET PO SCH ×2 (08:22→17:38)
[2019-05-15] MEDS: CLONIDINE 0.1MG TABLET PO PRN (08:23)
[2019-05-15] MEDS: CARVEDILOL 12.5MG TABLET PO SCH ×2 (08:23→21:16)
[2019-05-15] MEDS: ACETAMINOPHEN 325MG TABLET PO PRN ×2 (08:29→21:17)
[2019-05-15 12:00] VITALS: BP 140/78
[2019-05-15 16:00] VITALS: BP 152/83
[2019-05-15 20:00] VITALS: BP_SYST 136; BP_SYST 146; BP_DIAS 71; BP_DIAS 75
[2019-05-15] MEDS: TAMSULOSIN HCL 0.4MG SR CAPSULE PO SCH (21:16)
[2019-05-16] VITALS: BP_SYST 146; BP_DIAS 5; BP_DIAS 75
[2019-05-16 04:00] VITALS: BP 150/83
[2019-05-16 07:20] LABS: BASOPHILS % 0.6 % (0.0-2.0); HEMATOCRIT. 33.4 % (42.0-52.0); HEMOGLOBIN. 11.2 g/dL (14.0-18.0); LYMPHOCYTES % 27.7 % (20.0-50.0); MEAN CORPUSCULAR HEMOGLOBIN 31.6 pg (28.0-32.0); MEAN CORPUSCULAR VOLUME 94.3 fL (80.0-94.0); MEAN PLATELET VOLUME 8.6 fl (7.4-10.4); MONOCYTES % 12.6 % (2.0-8.0); NEUTROPHILS % 58.1 % (40.0-76.0); PLATELET 140 x1000/uL (130-400); RED BLOOD CELL COUNT 3.54 mill/uL (4.7-6.1); RED CELL DISTRIBUTION WIDTH 14.4 % (11.6-14.6)
[2019-05-16 07:28] LABS: CHLORIDE 110 mEq/L (98-107)
[2019-05-16 07:36] LABS: AMYLASE 52 IU/L (25-115); CREATINE KINASE 46 IU/L (39-308)
[2019-05-16 07:39] LABS: CREATINE KINASE MB FRACTION < 1.0 ng/mL (0.5-3.6)
[2019-05-16 08:00] VITALS: BP 170/92
[2019-05-16] MEDS: DOCUSATE SODIUM 100MG CAPSULE PO PRN ×2 (08:47→08:50)
[2019-05-16] MEDS: HYDROCODONE/ACETAMINOPHEN 5/325MG TABLET PO PRN ×3 (08:47→12:52)
[2019-05-16] MEDS: CLONIDINE 0.1MG TABLET PO PRN ×2 (08:48→08:50)
[2019-05-16] MEDS: SACUBITRIL/VALSARTAN 49MG/51MG TABLET PO SCH (08:49)
[2019-05-16] MEDS: CARVEDILOL 12.5MG TABLET PO SCH (08:50)
[2019-05-16 12:00] VITALS: BP 149/76
[2019-05-16 13:03] VITALS: BP 149/76
== END 2019-05-16 14:25 | disposition home or self-care (01) | DRG 292 ==
LOC: EDBD → ER 22:30 → EDBEDREQTM 05-13 02:19 → EDBEDREQ 05-13 02:19 → ENRESERV 05-13 07:06 → 7WST 05-13 08:46
PROVIDERS: ADMIT Internal Medicine; ATTEND Internal Medicine
DX: I11.0 Hypertensive heart disease with heart failure (principal); K92.2 Gastrointestinal hemorrhage, unspecified; D64.9 Anemia, unspecified; I50.43 Acute on chronic combined systolic (congestive) and diastolic (congestive) heart failure; I43 Cardiomyopathy in diseases classified elsewhere; F41.8 Other specified anxiety disorders; G25.2 Other specified forms of tremor; I25.10 Atherosclerotic heart disease of native coronary artery without angina pectoris; I35.0 Nonrheumatic aortic (valve) stenosis; J44.9 Chronic obstructive pulmonary disease, unspecified; K57.90 Diverticulosis of intestine, part unspecified, without perforation or abscess without bleeding; N40.0 Benign prostatic hyperplasia without lower urinary tract symptoms; Z96.652 Presence of left artificial knee joint; K59.00 Constipation, unspecified; M10.9 Gout, unspecified; Z96.641 Presence of right artificial hip joint; M19.90 Unspecified osteoarthritis, unspecified site; Z82.49 Family history of ischemic heart disease and other diseases of the circulatory system; Z87.891 Personal history of nicotine dependence; Z95.1 Presence of aortocoronary bypass graft; Z95.2 Presence of prosthetic heart valve; Z95.810 Presence of automatic (implantable) cardiac defibrillator; Z88.1 Allergy status to other antibiotic agents; Z79.899 Other long term (current) drug therapy
CPT/HCPCS: 36415; 71045; 76700; 80048; 82040; 82150; 82550; 82553; 82962; 83735; 83880; 84484; 85651; 93005; 99285

== ENCOUNTER 2019-05-26 04:40 | Inpatient (IN) | payer MEDICARE, MEDICAID ==
[~2019-05-26] VITALS: Ht 170.2 cm; Wt 83.9 kg
[~2019-05-26 04:40] MED LIST changes: +CLON1PAT11 TP; -PROP10DR2 EACHEYE
[2019-05-26 05:39] LABS: CHLORIDE 108 mEq/L (98-107)
[2019-05-26 05:43] LABS: BASOPHILS % 0.6 % (0.0-2.0); EOSINOPHILS % 0.7 % (0.0-5.0); HEMOGLOBIN. 11.6 g/dL (14.0-18.0); LYMPHOCYTES % 15.7 % (20.0-50.0); MEAN CORPUSCULAR HEMOGLOBIN 31.7 pg (28.0-32.0); MEAN CORPUSCULAR VOLUME 96.1 fL (80.0-94.0); MEAN PLATELET VOLUME 8.4 fl (7.4-10.4); PLATELET 123 x1000/uL (130-400); RED BLOOD CELL COUNT 3.64 mill/uL (4.7-6.1); RED CELL DISTRIBUTION WIDTH 14.4 % (11.6-14.6)
[2019-05-26 05:46] LABS: INR 1.1; PROTHROMBIN TIME 11.5 sec (9.6-11.0)
[2019-05-26] MEDS ORDERED: ASPIRIN 81MG TABLET PO ONE (06:15)
[2019-05-26] MEDS ORDERED: FUROSEMIDE 40MG/4ML VIAL IV ONE (06:15)
[2019-05-26] MEDS ORDERED: NITROGLYCERIN OINT 1GM/INCH UDPKT TD ONE (06:15)
[2019-05-26] MEDS ORDERED: DOCUSATE SODIUM 100MG CAPSULE PO PRN (12:30)
[2019-05-26] MEDS ORDERED: ACETAMINOPHEN 325MG TABLET PO PRN (12:30)
[2019-05-26] MEDS ORDERED: ONDANSETRON HCL 4MG/2ML INJ IV PRN (12:30)
[2019-05-26] MEDS ORDERED: GUAIFENESIN 200MG/10ML SUGAR FREE UDC PO PRN (12:30)
[2019-05-26 13:51] VITALS: BP 107/80
[2019-05-26 16:06] VITALS: BP 115/76
[2019-05-26 17:20] LABS: CLARITY URINE CLEAR (CLEAR); COLOR URINE YELLOW (YELLOW); KETONES URINE NEGATIVE (NEGATIVE); LEUKOCYTE ESTERASE URINE NEGATIVE (NEGATIVE); NITRITE URINE NEGATIVE (NEGATIVE); OCCULT BLOOD URINE NEGATIVE (NEGATIVE); PH URINE 6.5 (4.5-8.0); PROTEIN URINE NEGATIVE (NEGATIVE); SPECIFIC GRAVITY URINE 1.009 (1.005-1.030); UROBILINOGEN URINE 0.2 E.U./dL (0.2-1.0)
[2019-05-26] MEDS ORDERED: TRAMADOL 50MG TABLET PO PRN (17:45)
[2019-05-26] MEDS: TAMSULOSIN HCL 0.4MG SR CAPSULE PO SCH (18:36)
[2019-05-26] MEDS: FUROSEMIDE 40MG TABLET PO SCH (18:36)
[2019-05-26] MEDS ORDERED: ENOXAPARIN 40MG/0.4ML SYR SUBCUT SCH (19:15)
[2019-05-26 20:00] VITALS: BP 150/86
[2019-05-26] MEDS ORDERED: CLONIDINE HCL 0.3MG/24HR PATCH TD SCH (20:00)
[2019-05-26] MEDS: ENOXAPARIN 40MG/0.4ML SYR SUBCUT SCH (21:28)
[2019-05-26] MEDS: CARVEDILOL 12.5MG TABLET PO SCH (21:28)
[2019-05-26] MEDS: LORATADINE 10MG TABLET PO SCH (22:00)
[2019-05-27] VITALS: BP 145/74
[2019-05-27 04:00] VITALS: BP 118/82
[2019-05-27] MEDS: FUROSEMIDE 40MG TABLET PO SCH ×2 (06:48→16:51)
[2019-05-27 07:45] LABS: BASOPHILS % 0.8 % (0.0-2.0); EOSINOPHILS % 1.6 % (0.0-5.0); HEMATOCRIT. 34.6 % (42.0-52.0); HEMOGLOBIN. 11.5 g/dL (14.0-18.0); LYMPHOCYTES % 31.3 % (20.0-50.0); MEAN CORPUSCULAR HEMOGLOBIN 31.9 pg (28.0-32.0); MEAN CORPUSCULAR VOLUME 95.5 fL (80.0-94.0); MEAN PLATELET VOLUME 9.3 fl (7.4-10.4); MONOCYTES % 11.2 % (2.0-8.0); NEUTROPHILS % 55.1 % (40.0-76.0); PLATELET 131 x1000/uL (130-400); RED BLOOD CELL COUNT 3.62 mill/uL (4.7-6.1); RED CELL DISTRIBUTION WIDTH 13.9 % (11.6-14.6)
[2019-05-27 07:55] LABS: CHLORIDE 107 mEq/L (98-107)
[2019-05-27 08:00] VITALS: BP 168/90
[2019-05-27] MEDS: LORATADINE 10MG TABLET PO SCH (10:01)
[2019-05-27] MEDS: POTASSIUM CHLORIDE 10MEQ TABLET SR PO SCH ×2 (10:01→16:51)
[2019-05-27] MEDS: FISH OIL/OMEGA-3 FATTY ACIDS 1000MG CAPSULE PO SCH (10:01)
[2019-05-27] MEDS: TAMSULOSIN HCL 0.4MG SR CAPSULE PO SCH (10:02)
[2019-05-27] MEDS: CARVEDILOL 12.5MG TABLET PO SCH ×2 (10:02→22:56)
[2019-05-27] MEDS: DOCUSATE SODIUM 250MG CAPSULE PO SCH (10:03)
[2019-05-27] MEDS: GABAPENTIN 300MG CAPSULE PO SCH ×2 (10:03→16:51)
[2019-05-27 12:25] VITALS: BP 153/83
[2019-05-27 16:20] VITALS: BP 156/86
[2019-05-27 20:20] VITALS: BP 133/64
[2019-05-27] MEDS: ENOXAPARIN 40MG/0.4ML SYR SUBCUT SCH (22:55)
[2019-05-27] MEDS: SACUBITRIL/VALSARTAN 49MG/51MG TABLET PO SCH (22:57)
[2019-05-28 00:38] VITALS: BP 157/98
[2019-05-28 04:00] VITALS: BP 132/74
[2019-05-28] MEDS: FUROSEMIDE 40MG TABLET PO SCH ×2 (07:15→17:51)
[2019-05-28 08:00] VITALS: BP 150/72
[2019-05-28] MEDS: DOCUSATE SODIUM 250MG CAPSULE PO SCH (09:00)
[2019-05-28] MEDS: GABAPENTIN 300MG CAPSULE PO SCH ×2 (09:00→17:51)
[2019-05-28] MEDS: CARVEDILOL 12.5MG TABLET PO SCH (09:00)
[2019-05-28] MEDS: POTASSIUM CHLORIDE 10MEQ TABLET SR PO SCH ×2 (09:00→17:51)
[2019-05-28] MEDS: SACUBITRIL/VALSARTAN 49MG/51MG TABLET PO SCH ×2 (09:00→17:50)
[2019-05-28] MEDS: TAMSULOSIN HCL 0.4MG SR CAPSULE PO SCH (09:00)
[2019-05-28] MEDS: FISH OIL/OMEGA-3 FATTY ACIDS 1000MG CAPSULE PO SCH (09:00)
[2019-05-28] MEDS: LORATADINE 10MG TABLET PO SCH (09:00)
[2019-05-28 12:09] VITALS: BP 141/76
[2019-05-28 16:00] VITALS: BP 132/74
[2019-05-28 16:25] VITALS: BP 150/72
== END 2019-05-28 18:08 | disposition home or self-care (01) | DRG 291 ==
LOC: EDBD → ER 05:00 → EDBEDREQ 09:33 → ENRESERV 10:44 → 6WST 12:47
PROVIDERS: ADMIT Internal Medicine; ATTEND Internal Medicine
PROC: 4B02XTZ Measurement of Cardiac Defibrillator, External Approach (ICD-10-PCS; principal; 2019-05-28)
DX: I11.0 Hypertensive heart disease with heart failure (principal); K57.91 Diverticulosis of intestine, part unspecified, without perforation or abscess with bleeding; I48.20 Chronic atrial fibrillation, unspecified; R55 Syncope and collapse; I50.43 Acute on chronic combined systolic (congestive) and diastolic (congestive) heart failure; I43 Cardiomyopathy in diseases classified elsewhere; J44.9 Chronic obstructive pulmonary disease, unspecified; Z96.652 Presence of left artificial knee joint; I25.10 Atherosclerotic heart disease of native coronary artery without angina pectoris; Z96.641 Presence of right artificial hip joint; G89.29 Other chronic pain; K59.00 Constipation, unspecified; R51 Headache; M19.042 Primary osteoarthritis, left hand; M19.041 Primary osteoarthritis, right hand; M16.10 Unilateral primary osteoarthritis, unspecified hip; M19.019 Primary osteoarthritis, unspecified shoulder; R35.1 Nocturia; M54.5 Low back pain; N40.0 Benign prostatic hyperplasia without lower urinary tract symptoms; G25.2 Other specified forms of tremor; L91.0 Hypertrophic scar; M10.9 Gout, unspecified; D64.9 Anemia, unspecified; F41.8 Other specified anxiety disorders; Z82.49 Family history of ischemic heart disease and other diseases of the circulatory system; Z95.1 Presence of aortocoronary bypass graft; Z95.5 Presence of coronary angioplasty implant and graft; Z95.2 Presence of prosthetic heart valve; Z87.891 Personal history of nicotine dependence; Z88.1 Allergy status to other antibiotic agents; Z95.810 Presence of automatic (implantable) cardiac defibrillator; Z79.899 Other long term (current) drug therapy; Z98.42 Cataract extraction status, left eye
CPT/HCPCS: 36415; 71045; 81003; 82040; 83880; 84484; 93005; 93970; 99285; J1650; J1940; J2405

== ENCOUNTER 2019-06-03 16:15 | Inpatient (IN) | payer MEDICARE, MEDICAID ==
[~2019-06-03] VITALS: Ht 170.2 cm; Wt 79.8 kg
[2019-06-03 17:01] LABS: BASOPHILS % 0.6 % (0.0-2.0); EOSINOPHILS % 1.2 % (0.0-5.0); HEMATOCRIT. 34.9 % (42.0-52.0); HEMOGLOBIN. 11.6 g/dL (14.0-18.0); LYMPHOCYTES % 27.2 % (20.0-50.0); MEAN CORPUSCULAR HEMOGLOBIN 31.6 pg (28.0-32.0); MEAN CORPUSCULAR VOLUME 95.1 fL (80.0-94.0); MEAN PLATELET VOLUME 8.5 fl (7.4-10.4); MONOCYTES % 11.5 % (2.0-8.0); NEUTROPHILS % 59.5 % (40.0-76.0); PLATELET 187 x1000/uL (130-400); RED BLOOD CELL COUNT 3.67 mill/uL (4.7-6.1); RED CELL DISTRIBUTION WIDTH 14.6 % (11.6-14.6)
[2019-06-03 17:02] LABS: CHLORIDE 113 mEq/L (98-107)
[2019-06-03 17:03] LABS: INR 1.1; PROTHROMBIN TIME 11.4 sec (9.6-11.0)
[2019-06-03 17:06] LABS: ETHANOL BLOOD < 10 mg/dL
[2019-06-03 17:09] LABS: LDL CHOLESTEROL 136 mg/dL (5-100)
[2019-06-03] MEDS ORDERED: ALTEPLASE 100MG/VIAL IV NR (17:18)
[2019-06-03] MEDS ORDERED: CONTAINER EMPTY IV NR (17:25)
[2019-06-03] MEDS ORDERED: ALTEPLASE IV NR (17:25)
[2019-06-03] MEDS ORDERED: *NO ASPIRIN X 24 HOURS XX SCH (17:30)
[2019-06-03] MEDS ORDERED: IOHEXOL-350 100 ML BOTTLE ONE (18:42)
[2019-06-03] MEDS ORDERED: GUAIFENESIN 200MG/10ML SUGAR FREE UDC PO PRN (20:45)
[2019-06-03] MEDS ORDERED: CLONIDINE HCL 0.3MG/24HR PATCH TD SCH (20:45)
[2019-06-03] MEDS ORDERED: ACETAMINOPHEN 325MG TABLET PO PRN (20:45)
[2019-06-03] MEDS ORDERED: DOCUSATE SODIUM 100MG CAPSULE PO PRN (20:45)
[2019-06-03] MEDS ORDERED: ONDANSETRON HCL 4MG/2ML INJ IV PRN (20:45)
[2019-06-04] VITALS (30 sets, daily range): BP systolic 124–199; BP diastolic 76–108
[2019-06-04] MEDS: FISH OIL/OMEGA-3 FATTY ACIDS 1000MG CAPSULE PO SCH (09:00)
[2019-06-04] MEDS ORDERED: NON FORMULARY PATIENT HOME MED PO SCH (09:00)
[2019-06-04] MEDS: CARVEDILOL 12.5MG TABLET PO SCH ×2 (10:17→20:08)
[2019-06-04] MEDS: POTASSIUM CHLORIDE 10MEQ TABLET SR PO SCH ×2 (10:17→18:49)
[2019-06-04] MEDS: TAMSULOSIN HCL 0.4MG SR CAPSULE PO SCH (10:17)
[2019-06-04] MEDS: FUROSEMIDE 40MG TABLET PO SCH (10:17)
[2019-06-04] MEDS: POLYVINYL ALCOHOL OPHTH DROPS 15ML BOTHEYE SCH ×3 (11:10→23:43)
[2019-06-04] MEDS: SACUBITRIL/VALSARTAN 49MG/51MG TABLET PO SCH ×2 (11:10→20:08)
[2019-06-04 11:32] LABS: BASOPHILS % 0.7 % (0.0-2.0); EOSINOPHILS % 2.3 % (0.0-5.0); HEMATOCRIT. 36.3 % (42.0-52.0); HEMOGLOBIN. 12.1 g/dL (14.0-18.0); LYMPHOCYTES % 28.2 % (20.0-50.0); MEAN CORPUSCULAR HEMOGLOBIN 31.9 pg (28.0-32.0); MEAN PLATELET VOLUME 8.3 fl (7.4-10.4); MONOCYTES % 7.9 % (2.0-8.0); NEUTROPHILS % 60.9 % (40.0-76.0); PLATELET 172 x1000/uL (130-400); RED BLOOD CELL COUNT 3.78 mill/uL (4.7-6.1); RED CELL DISTRIBUTION WIDTH 14.6 % (11.6-14.6)
[2019-06-04 11:37] LABS: CHLORIDE 110 mEq/L (98-107)
[2019-06-04 13:20] LABS: CLARITY URINE CLEAR (CLEAR); COLOR URINE YELLOW (YELLOW); KETONES URINE NEGATIVE (NEGATIVE); LEUKOCYTE ESTERASE URINE NEGATIVE (NEGATIVE); NITRITE URINE NEGATIVE (NEGATIVE); OCCULT BLOOD URINE NEGATIVE (NEGATIVE); PH URINE 7.5 (4.5-8.0); PROTEIN URINE NEGATIVE (NEGATIVE); SPECIFIC GRAVITY URINE 1.015 (1.005-1.030); UROBILINOGEN URINE 0.2 E.U./dL (0.2-1.0)
[2019-06-04 13:30] LABS: *AMPHETAMINES SCREEN URINE NEGATIVE (NEGATIVE); *BARBITURATES SCREEN URINE NEGATIVE (NEGATIVE); *BENZODIAZEPINES SCREEN URINE NEGATIVE (NEGATIVE); *COCAINE SCREEN URINE NEGATIVE (NEGATIVE)
[2019-06-04 13:33] LABS: METHADONE URINE SCREEN NEGATIVE (NEGATIVE)
[2019-06-04 13:34] LABS: CANNABINOID URINE SCREEN NEGATIVE (NEGATIVE); OPIATES URINE SCREEN NEGATIVE (NEGATIVE); PHENCYCLIDINE URINE SCREEN NEGATIVE (NEGATIVE)
[2019-06-04] MEDS ORDERED: CLONIDINE 0.1MG TABLET PO PRN (17:11)
[2019-06-04] MEDS: ATORVASTATIN CALCIUM 40MG TABLET PO SCH (20:07)
[2019-06-05] VITALS (31 sets, daily range): BP systolic 117–170; BP diastolic 39–93
[2019-06-05] MEDS: POLYVINYL ALCOHOL OPHTH DROPS 15ML BOTHEYE SCH ×4 (06:12→23:47)
[2019-06-05] MEDS: POTASSIUM CHLORIDE 10MEQ TABLET SR PO SCH ×2 (08:46→16:33)
[2019-06-05] MEDS: CARVEDILOL 12.5MG TABLET PO SCH ×2 (08:46→20:46)
[2019-06-05] MEDS: FUROSEMIDE 40MG TABLET PO SCH (08:46)
[2019-06-05] MEDS: FISH OIL/OMEGA-3 FATTY ACIDS 1000MG CAPSULE PO SCH (08:46)
[2019-06-05] MEDS: SACUBITRIL/VALSARTAN 49MG/51MG TABLET PO SCH ×2 (08:47→20:46)
[2019-06-05] MEDS: TAMSULOSIN HCL 0.4MG SR CAPSULE PO SCH (08:47)
[2019-06-05] MEDS: APIXABAN 5 MG TABLET PO SCH ×2 (12:27→20:46)
[2019-06-05] MEDS: ATORVASTATIN CALCIUM 40MG TABLET PO SCH (20:46)
[2019-06-06] VITALS (8 sets, daily range): BP systolic 131–154; BP diastolic 74–104
[2019-06-06] MEDS: HYDROCODONE/ACETAMINOPHEN 5/325MG TABLET PO PRN ×2 (04:46→10:30)
[2019-06-06] MEDS: POLYVINYL ALCOHOL OPHTH DROPS 15ML BOTHEYE SCH (06:27)
[2019-06-06 08:00] LABS: BASOPHILS % 0.4 % (0.0-2.0); EOSINOPHILS % 1.5 % (0.0-5.0); HEMATOCRIT. 35.6 % (42.0-52.0); HEMOGLOBIN. 11.7 g/dL (14.0-18.0); LYMPHOCYTES % 27.1 % (20.0-50.0); MEAN CORPUSCULAR HEMOGLOBIN 31.3 pg (28.0-32.0); MEAN CORPUSCULAR VOLUME 95.4 fL (80.0-94.0); MEAN PLATELET VOLUME 8.5 fl (7.4-10.4); MONOCYTES % 10.3 % (2.0-8.0); NEUTROPHILS % 60.7 % (40.0-76.0); PLATELET 171 x1000/uL (130-400); RED BLOOD CELL COUNT 3.73 mill/uL (4.7-6.1); RED CELL DISTRIBUTION WIDTH 14.1 % (11.6-14.6)
[2019-06-06 08:06] LABS: CHLORIDE 108 mEq/L (98-107)
[2019-06-06] MEDS: APIXABAN 5 MG TABLET PO SCH (08:37)
[2019-06-06] MEDS: FUROSEMIDE 40MG TABLET PO SCH (08:37)
[2019-06-06] MEDS: FISH OIL/OMEGA-3 FATTY ACIDS 1000MG CAPSULE PO SCH (08:37)
[2019-06-06] MEDS: POTASSIUM CHLORIDE 10MEQ TABLET SR PO SCH (08:37)
[2019-06-06] MEDS: CARVEDILOL 12.5MG TABLET PO SCH (08:38)
[2019-06-06] MEDS: TAMSULOSIN HCL 0.4MG SR CAPSULE PO SCH (08:38)
[2019-06-06] MEDS: SACUBITRIL/VALSARTAN 49MG/51MG TABLET PO SCH (09:14)
== END 2019-06-06 12:35 | disposition home or self-care (01) | DRG 61 ==
LOC: ER 16:59 → EDBEDREQTM 19:13 → EDBEDREQ 19:13 → ENRESERV 06-04 04:04 → 5EST 06-04 04:50 → MICUSO 06-04 05:50 → 5EST 06-05 11:25
PROVIDERS: ADMIT Internal Medicine; ATTEND Internal Medicine
DX: I63.9 Cerebral infarction, unspecified (principal); I50.43 Acute on chronic combined systolic (congestive) and diastolic (congestive) heart failure; K57.91 Diverticulosis of intestine, part unspecified, without perforation or abscess with bleeding; I43 Cardiomyopathy in diseases classified elsewhere; E78.5 Hyperlipidemia, unspecified; F41.9 Anxiety disorder, unspecified; F32.9 Major depressive disorder, single episode, unspecified; G25.2 Other specified forms of tremor; I11.0 Hypertensive heart disease with heart failure; I25.10 Atherosclerotic heart disease of native coronary artery without angina pectoris; I35.0 Nonrheumatic aortic (valve) stenosis; I48.0 Paroxysmal atrial fibrillation; J44.9 Chronic obstructive pulmonary disease, unspecified; K59.00 Constipation, unspecified; Z96.641 Presence of right artificial hip joint; Z96.652 Presence of left artificial knee joint; M19.012 Primary osteoarthritis, left shoulder; M19.011 Primary osteoarthritis, right shoulder; M19.042 Primary osteoarthritis, left hand; M19.041 Primary osteoarthritis, right hand; R35.1 Nocturia; N40.1 Benign prostatic hyperplasia with lower urinary tract symptoms; L91.0 Hypertrophic scar; M10.9 Gout, unspecified; Z82.49 Family history of ischemic heart disease and other diseases of the circulatory system; Z87.891 Personal history of nicotine dependence; Z88.1 Allergy status to other antibiotic agents; Z95.1 Presence of aortocoronary bypass graft; Z95.2 Presence of prosthetic heart valve; Z95.810 Presence of automatic (implantable) cardiac defibrillator; Z79.899 Other long term (current) drug therapy; I25.2 Old myocardial infarction; Z98.42 Cataract extraction status, left eye; Z98.41 Cataract extraction status, right eye
CPT/HCPCS: 36415; 70496; 70498; 71045; 80048; 80305; 80320; 81003; 82040; 83721; 83735; 83880; 84484; 93005; 93970; 95816; 97162; 99291; J2997; J7060; Q9967; G0480

== ENCOUNTER 2019-06-21 23:08 | Inpatient (IN) | payer MEDICARE, MEDICAID ==
[~2019-06-21] VITALS: Ht 170.2 cm; Wt 85.8 kg
[2019-06-22] MEDS ORDERED: ASPIRIN 81MG TABLET PO ONE
[2019-06-22 00:02] LABS: EOSINOPHILS % 1.4 % (0.0-5.0); HEMATOCRIT. 34.2 % (42.0-52.0); HEMOGLOBIN. 11.3 g/dL (14.0-18.0); LYMPHOCYTES % 19.5 % (20.0-50.0); MEAN CORPUSCULAR HEMOGLOBIN 31.5 pg (28.0-32.0); MEAN CORPUSCULAR VOLUME 95.5 fL (80.0-94.0); MEAN PLATELET VOLUME 9.3 fl (7.4-10.4); NEUTROPHILS % 68.1 % (40.0-76.0); PLATELET 167 x1000/uL (130-400); RED BLOOD CELL COUNT 3.58 mill/uL (4.7-6.1); RED CELL DISTRIBUTION WIDTH 14.7 % (11.6-14.6)
[2019-06-22 00:08] LABS: CHLORIDE 108 mEq/L (98-107)
[2019-06-22] MEDS ORDERED: FUROSEMIDE 100MG/10ML VIAL IVP SCH (01:00)
[2019-06-22] MEDS ORDERED: KETOROLAC 15MG/ML VIAL IV ONE (04:45)
[2019-06-22 08:20] VITALS: BP 175/96
[2019-06-22 08:30] VITALS: BP 175/96
[2019-06-22] MEDS ORDERED: CLONIDINE HCL 0.3MG/24HR PATCH TOP SCH (11:00)
[2019-06-22] MEDS ORDERED: DOCUSATE SODIUM 100MG CAPSULE PO PRN (12:30)
[2019-06-22] MEDS ORDERED: ONDANSETRON HCL 4MG/2ML INJ IV PRN (12:30)
[2019-06-22] MEDS ORDERED: GUAIFENESIN 200MG/10ML SUGAR FREE UDC PO PRN (12:30)
[2019-06-22] MEDS ORDERED: SACUBITRIL/VALSARTAN 49MG/51MG TABLET PO SCH (12:30)
[2019-06-22] MEDS ORDERED: CLONIDINE 0.1MG TABLET PO PRN (12:30)
[2019-06-22] MEDS ORDERED: IPRATROPIUM/ALBUTEROL 0.5-3(2.5)MG/3ML NEB HHN PRN (12:30)
[2019-06-22 12:40] VITALS: BP 176/87
[2019-06-22] MEDS: FISH OIL/OMEGA-3 FATTY ACIDS 1000MG CAPSULE PO SCH (13:24)
[2019-06-22] MEDS: LORATADINE 10MG TABLET PO SCH (13:24)
[2019-06-22] MEDS: APIXABAN 5 MG TABLET PO SCH (16:42)
[2019-06-22] MEDS: AMIODARONE HCL 200 MG TABLET PO SCH (16:42)
[2019-06-22] MEDS: FUROSEMIDE 40MG TABLET PO SCH (16:42)
[2019-06-22] MEDS: POTASSIUM CHLORIDE 10MEQ TABLET SR PO SCH (16:42)
[2019-06-22 16:45] VITALS: BP 147/78
[2019-06-22 20:00] VITALS: BP 162/82
[2019-06-22] MEDS: GABAPENTIN 300MG CAPSULE PO SCH (20:34)
[2019-06-22] MEDS: ENTRESTO PO SCH (20:34)
[2019-06-22] MEDS: DICLOFENAC SODIUM 75MG DR (EC) TABLET PO SCH (20:34)
[2019-06-22] MEDS: CARVEDILOL 12.5MG TABLET PO SCH (20:34)
[2019-06-22] MEDS: TAMSULOSIN HCL 0.4MG SR CAPSULE PO SCH (20:34)
[2019-06-23 00:36] VITALS: BP 146/81
[2019-06-23 04:00] VITALS: BP 139/81
[2019-06-23 05:14] LABS: BASOPHILS % 0.9 % (0.0-2.0); EOSINOPHILS % 2.4 % (0.0-5.0); HEMATOCRIT. 32.6 % (42.0-52.0); HEMOGLOBIN. 10.9 g/dL (14.0-18.0); LYMPHOCYTES % 29.7 % (20.0-50.0); MEAN CORPUSCULAR HEMOGLOBIN 31.8 pg (28.0-32.0); MEAN CORPUSCULAR VOLUME 94.8 fL (80.0-94.0); MEAN PLATELET VOLUME 8.8 fl (7.4-10.4); MONOCYTES % 12.3 % (2.0-8.0); NEUTROPHILS % 54.7 % (40.0-76.0); PLATELET 142 x1000/uL (130-400); RED BLOOD CELL COUNT 3.44 mill/uL (4.7-6.1); RED CELL DISTRIBUTION WIDTH 14.2 % (11.6-14.6)
[2019-06-23] MEDS: AMIODARONE HCL 200 MG TABLET PO SCH ×2 (05:15→17:40)
[2019-06-23 05:19] LABS: CHLORIDE 107 mEq/L (98-107)
[2019-06-23 08:00] VITALS: BP 146/76
[2019-06-23] MEDS: LORATADINE 10MG TABLET PO SCH (08:40)
[2019-06-23] MEDS: POTASSIUM CHLORIDE 10MEQ TABLET SR PO SCH ×2 (08:40→16:21)
[2019-06-23] MEDS: FUROSEMIDE 40MG TABLET PO SCH ×2 (08:40→16:21)
[2019-06-23] MEDS: APIXABAN 5 MG TABLET PO SCH ×2 (08:40→16:21)
[2019-06-23] MEDS: DICLOFENAC SODIUM 75MG DR (EC) TABLET PO SCH ×2 (08:40→20:57)
[2019-06-23] MEDS: GABAPENTIN 300MG CAPSULE PO SCH ×2 (08:40→20:57)
[2019-06-23] MEDS: FISH OIL/OMEGA-3 FATTY ACIDS 1000MG CAPSULE PO SCH (08:40)
[2019-06-23] MEDS: ENTRESTO PO SCH ×2 (08:41→20:58)
[2019-06-23] MEDS: CARVEDILOL 12.5MG TABLET PO SCH ×2 (08:41→20:57)
[2019-06-23 12:00] VITALS: BP 140/66
[2019-06-23 16:00] VITALS: BP 145/80
[2019-06-23] MEDS: ACETAMINOPHEN 325MG TABLET PO PRN ×2 (16:21→23:44)
[2019-06-23 20:00] VITALS: BP 156/82
[2019-06-23] MEDS: TAMSULOSIN HCL 0.4MG SR CAPSULE PO SCH (20:57)
[2019-06-24] VITALS: BP 126/74
[2019-06-24 04:00] VITALS: BP 142/80
[2019-06-24] MEDS: AMIODARONE HCL 200 MG TABLET PO SCH (05:23)
[2019-06-24 08:00] VITALS: BP 139/86
[2019-06-24] MEDS: GABAPENTIN 300MG CAPSULE PO SCH (08:37)
[2019-06-24] MEDS: POTASSIUM CHLORIDE 10MEQ TABLET SR PO SCH (08:38)
[2019-06-24] MEDS: APIXABAN 5 MG TABLET PO SCH (08:38)
[2019-06-24] MEDS: FUROSEMIDE 40MG TABLET PO SCH (08:38)
[2019-06-24] MEDS: CARVEDILOL 12.5MG TABLET PO SCH (08:38)
[2019-06-24] MEDS: FISH OIL/OMEGA-3 FATTY ACIDS 1000MG CAPSULE PO SCH (08:38)
[2019-06-24] MEDS: ENTRESTO PO SCH (08:38)
[2019-06-24] MEDS: DICLOFENAC SODIUM 75MG DR (EC) TABLET PO SCH (08:38)
[2019-06-24] MEDS: LORATADINE 10MG TABLET PO SCH (08:38)
[2019-06-24 12:00] VITALS: BP 137/77
[2019-06-24 12:44] VITALS: BP 137/77
[2019-06-29] MEDS ORDERED: CLONIDINE HCL 0.3MG/24HR PATCH TD SCH (09:00)
== END 2019-06-24 13:22 | disposition home or self-care (01) | DRG 292 ==
LOC: EDBD → ER 23:08 → 6WST 06-22 02:00 → EDBD 06-22 02:00 → EDBEDREQ 06-22 02:04 → EDBEDREQTM 06-22 02:04 → ENRESERV 06-22 07:15
PROVIDERS: ADMIT Internal Medicine; ATTEND Internal Medicine
DX: I50.43 Acute on chronic combined systolic (congestive) and diastolic (congestive) heart failure (principal); K92.2 Gastrointestinal hemorrhage, unspecified; I48.20 Chronic atrial fibrillation, unspecified; I43 Cardiomyopathy in diseases classified elsewhere; I11.0 Hypertensive heart disease with heart failure; D64.9 Anemia, unspecified; F41.8 Other specified anxiety disorders; G25.2 Other specified forms of tremor; I25.10 Atherosclerotic heart disease of native coronary artery without angina pectoris; Z96.641 Presence of right artificial hip joint; Z96.652 Presence of left artificial knee joint; J44.9 Chronic obstructive pulmonary disease, unspecified; R35.1 Nocturia; N28.9 Disorder of kidney and ureter, unspecified; K59.00 Constipation, unspecified; L91.0 Hypertrophic scar; M10.9 Gout, unspecified; M19.90 Unspecified osteoarthritis, unspecified site; N40.1 Benign prostatic hyperplasia with lower urinary tract symptoms; Z82.49 Family history of ischemic heart disease and other diseases of the circulatory system; Z86.73 Personal history of transient ischemic attack (TIA), and cerebral infarction without residual deficits; Z87.891 Personal history of nicotine dependence; Z88.1 Allergy status to other antibiotic agents; Z95.0 Presence of cardiac pacemaker; Z95.1 Presence of aortocoronary bypass graft; Z95.2 Presence of prosthetic heart valve; Z98.42 Cataract extraction status, left eye
CPT/HCPCS: 36415; 71045; 80048; 80053; 82040; 83735; 83880; 84484; 85025; 93005; 96374; 96375; 99285; J1885; J1940

== ENCOUNTER 2019-07-10 01:21 | Emergency (ER) | payer MEDICARE, MEDICAID ==
[~2019-07-10] VITALS: Ht 170.2 cm; Wt 88.0 kg
[2019-07-10 02:46] LABS: CHLORIDE 109 mEq/L (98-107)
[2019-07-10 02:56] LABS: BASOPHILS % 0.6 % (0.0-2.0); EOSINOPHILS % 0.6 % (0.0-5.0); HEMOGLOBIN. 10.4 g/dL (14.0-18.0); LYMPHOCYTES % 10.1 % (20.0-50.0); MEAN CORPUSCULAR HEMOGLOBIN 31.6 pg (28.0-32.0); MEAN CORPUSCULAR VOLUME 94.6 fL (80.0-94.0); MEAN PLATELET VOLUME 8.4 fl (7.4-10.4); MONOCYTES % 6.5 % (2.0-8.0); NEUTROPHILS % 82.2 % (40.0-76.0); PLATELET 129 x1000/uL (130-400); RED BLOOD CELL COUNT 3.28 mill/uL (4.7-6.1); RED CELL DISTRIBUTION WIDTH 14.4 % (11.6-14.6)
[2019-07-10] MEDS ORDERED: FUROSEMIDE 20MG/2ML VIAL IVP SCH ×2 (05:15→06:00)
[2019-07-10 06:00] VITALS: BP 122/61
== END 2019-07-10 06:29 | disposition home or self-care (01) ==
LOC: ER 01:22 → CANBEDREQ 06:19 → ER 06:29
DX: I11.0 Hypertensive heart disease with heart failure (principal); I50.9 Heart failure, unspecified; J44.9 Chronic obstructive pulmonary disease, unspecified; Z98.61 Coronary angioplasty status; Z95.1 Presence of aortocoronary bypass graft; Z95.0 Presence of cardiac pacemaker; Z79.899 Other long term (current) drug therapy; Z88.1 Allergy status to other antibiotic agents
CPT/HCPCS: 36415; 71045; 80053; 83880; 84484; 85025; 93005; 96374; 99284; J1940

== ENCOUNTER 2019-07-22 09:30 | Emergency (ER) | payer MEDICARE, MEDICAID ==
[~2019-07-22] VITALS: Ht 170.2 cm; Wt 88.0 kg
[2019-07-22 11:51] LABS: BASOPHILS % 0.7 % (0.0-2.0); EOSINOPHILS % 0.5 % (0.0-5.0); HEMATOCRIT. 34.2 % (42.0-52.0); HEMOGLOBIN. 11.2 g/dL (14.0-18.0); LYMPHOCYTES % 20.7 % (20.0-50.0); MEAN CORPUSCULAR HEMOGLOBIN 31.2 pg (28.0-32.0); MEAN CORPUSCULAR VOLUME 95.6 fL (80.0-94.0); MEAN PLATELET VOLUME 9.3 fl (7.4-10.4); MONOCYTES % 9.9 % (2.0-8.0); NEUTROPHILS % 68.2 % (40.0-76.0); PLATELET 153 x1000/uL (130-400); RED BLOOD CELL COUNT 3.57 mill/uL (4.7-6.1); RED CELL DISTRIBUTION WIDTH 14.4 % (11.6-14.6)
[2019-07-22 11:53] LABS: CHLORIDE 110 mEq/L (98-107)
[2019-07-22 11:56] LABS: INR 1.1; PROTHROMBIN TIME 11.7 sec (9.6-11.0)
[2019-07-22 16:05] VITALS: BP 151/98
== END 2019-07-22 16:05 | disposition home or self-care (01) ==
LOC: ER 09:38
DX: K62.5 Hemorrhage of anus and rectum (principal); E11.9 Type 2 diabetes mellitus without complications; J44.9 Chronic obstructive pulmonary disease, unspecified; I25.10 Atherosclerotic heart disease of native coronary artery without angina pectoris; Z88.1 Allergy status to other antibiotic agents; Z95.0 Presence of cardiac pacemaker; Z98.61 Coronary angioplasty status
CPT/HCPCS: 36415; 74176; 99284

== ENCOUNTER 2019-08-17 21:44 | Inpatient (IN) | payer MEDICARE, MEDICAID ==
[~2019-08-17] VITALS: Ht 170.2 cm; Wt 81.2 kg
[2019-08-17] MEDS ORDERED: ALBUTEROL (0.083%) 2.5MG/3ML NEB HHN STA (23:02)
[2019-08-17] MEDS ORDERED: IPRATROPIUM BROMIDE (0.02%) 0.5MG/2.5ML NEB HHN STA (23:02)
[2019-08-18 00:09] LABS: BASOPHILS % 0.5 % (0.0-2.0); EOSINOPHILS % 0.3 % (0.0-5.0); HEMATOCRIT. 30.5 % (42.0-52.0); HEMOGLOBIN. 10.1 g/dL (14.0-18.0); LYMPHOCYTES % 10.5 % (20.0-50.0); MEAN CORPUSCULAR HEMOGLOBIN 31.3 pg (28.0-32.0); MEAN CORPUSCULAR VOLUME 94.7 fL (80.0-94.0); MEAN PLATELET VOLUME 8.8 fl (7.4-10.4); MONOCYTES % 7.2 % (2.0-8.0); NEUTROPHILS % 81.5 % (40.0-76.0); PLATELET 152 x1000/uL (130-400); RED BLOOD CELL COUNT 3.22 mill/uL (4.7-6.1); RED CELL DISTRIBUTION WIDTH 14.8 % (11.6-14.6)
[2019-08-18 00:20] LABS: CHLORIDE 110 mEq/L (98-107)
[2019-08-18] MEDS ORDERED: AZITHROMYCIN 500 MG in DEXT 5% WATER 250 ML IV SCH (01:00)
[2019-08-18] MEDS ORDERED: CEFTRIAXONE 2 G PREMIX 50 ML IV SCH (01:17)
[2019-08-18 13:00] VITALS: BP 140/71
[2019-08-18 14:05] VITALS: BP 140/71
[2019-08-18] MEDS ORDERED: ACETAMINOPHEN 325MG TABLET PO PRN (15:15)
[2019-08-18] MEDS ORDERED: GUAIFENESIN 200MG/10ML SUGAR FREE UDC PO PRN (15:15)
[2019-08-18] MEDS ORDERED: ONDANSETRON HCL 4MG/2ML INJ IV PRN (15:15)
[2019-08-18] MEDS ORDERED: MAGNESIUM/ALUMINUM HYDROXIDE/SIMETHICONE 30ML UDC PO PRN (15:15)
[2019-08-18] MEDS ORDERED: DIPHENHYDRAMINE 50MG/ML VIAL IV PRN (15:15)
[2019-08-18] MEDS: GABAPENTIN 300MG CAPSULE PO SCH (16:51)
[2019-08-18] MEDS: FUROSEMIDE 40MG/4ML VIAL IVP SCH (16:52)
[2019-08-18] MEDS: APIXABAN 5 MG TABLET PO SCH (16:52)
[2019-08-18] MEDS: DOCUSATE SODIUM 100MG CAPSULE PO SCH (16:52)
[2019-08-18 18:00] VITALS: BP 149/69
[2019-08-18] MEDS ORDERED: POLYVINYL ALCOHOL OPHTH DROPS 15ML BOTHEYE PRN (18:00)
[2019-08-18 20:32] VITALS: BP 133/61
[2019-08-18] MEDS: DICLOFENAC SODIUM 75MG DR (EC) TABLET PO SCH (21:30)
[2019-08-18] MEDS: SODIUM CHLORIDE 0.9% INJ 3ML FLUSH IVF SCH (21:31)
[2019-08-18] MEDS: CARVEDILOL 12.5MG TABLET PO SCH (21:31)
[2019-08-19 00:06] VITALS: BP 141/68
[2019-08-19] MEDS: IPRATROPIUM/ALBUTEROL 0.5-3(2.5)MG/3ML NEB HHN PRN ×2 (03:10→10:38)
[2019-08-19 04:00] VITALS: BP 161/84
[2019-08-19] MEDS: SODIUM CHLORIDE 0.9% INJ 3ML FLUSH IVF SCH ×3 (05:13→20:26)
[2019-08-19] MEDS ORDERED: IBUPROFEN 600MG TABLET PO PRN (06:30)
[2019-08-19] MEDS: FUROSEMIDE 40MG/4ML VIAL IVP SCH ×2 (06:50→16:21)
[2019-08-19 08:00] VITALS: BP 175/96
[2019-08-19 08:17] LABS: BASOPHILS % 0.7 % (0.0-2.0); EOSINOPHILS % 1.5 % (0.0-5.0); HEMOGLOBIN. 9.7 g/dL (14.0-18.0); LYMPHOCYTES % 14.1 % (20.0-50.0); MEAN CORPUSCULAR HEMOGLOBIN 30.7 pg (28.0-32.0); MEAN CORPUSCULAR VOLUME 94.7 fL (80.0-94.0); MEAN PLATELET VOLUME 9.1 fl (7.4-10.4); MONOCYTES % 7.2 % (2.0-8.0); NEUTROPHILS % 76.5 % (40.0-76.0); PLATELET 157 x1000/uL (130-400); RED BLOOD CELL COUNT 3.16 mill/uL (4.7-6.1); RED CELL DISTRIBUTION WIDTH 15.1 % (11.6-14.6)
[2019-08-19 08:19] LABS: PHOSPHORUS 3.4 mg/dL (2.5-4.9)
[2019-08-19] MEDS: DOCUSATE SODIUM 100MG CAPSULE PO SCH ×2 (09:09→16:21)
[2019-08-19] MEDS: DICLOFENAC SODIUM 75MG DR (EC) TABLET PO SCH ×2 (09:09→20:25)
[2019-08-19] MEDS: CARVEDILOL 12.5MG TABLET PO SCH ×2 (09:10→20:25)
[2019-08-19] MEDS: APIXABAN 5 MG TABLET PO SCH (09:10)
[2019-08-19] MEDS: TAMSULOSIN HCL 0.4MG SR CAPSULE PO SCH (09:10)
[2019-08-19] MEDS: GABAPENTIN 300MG CAPSULE PO SCH ×2 (09:10→20:26)
[2019-08-19] MEDS: POTASSIUM CHLORIDE 20MEQ TABLET SR PO SCH (09:10)
[2019-08-19] MEDS: TRAMADOL 50MG TABLET PO PRN (10:29)
[2019-08-19 12:00] VITALS: BP 175/100
[2019-08-19] MEDS ORDERED: CLONIDINE 0.1MG TABLET PO PRN (13:45)
[2019-08-19] MEDS ORDERED: HYDRALAZINE 20MG/ML VIAL IV PRN (14:45)
[2019-08-19 16:00] VITALS: BP 157/88
[2019-08-19] MEDS: APIXABAN 2.5 MG TABLET PO SCH (16:21)
[2019-08-19] MEDS ORDERED: NIFEDIPINE XL 30MG TAB PO SCH (17:00)
[2019-08-19 20:22] VITALS: BP 157/81
[2019-08-19] MEDS: ENTRESTO PO SCH (20:25)
[2019-08-19] MEDS: NIFEDIPINE XL 30MG TAB PO SCH (20:26)
[2019-08-19] MEDS ORDERED: NIFEDIPINE 10MG CAPSULE PO SCH ×2 (22:00)
[2019-08-20] VITALS (7 sets, daily range): BP systolic 106–144; BP diastolic 56–81
[2019-08-20] MEDS: SODIUM CHLORIDE 0.9% INJ 3ML FLUSH IVF SCH ×3 (05:17→20:46)
[2019-08-20] MEDS: FUROSEMIDE 40MG/4ML VIAL IVP SCH ×2 (06:18→18:49)
[2019-08-20] MEDS: TAMSULOSIN HCL 0.4MG SR CAPSULE PO SCH (08:51)
[2019-08-20] MEDS: GABAPENTIN 300MG CAPSULE PO SCH ×2 (08:51→20:44)
[2019-08-20] MEDS: POTASSIUM CHLORIDE 20MEQ TABLET SR PO SCH (08:51)
[2019-08-20] MEDS: CARVEDILOL 12.5MG TABLET PO SCH ×2 (08:51→20:45)
[2019-08-20] MEDS: DICLOFENAC SODIUM 75MG DR (EC) TABLET PO SCH ×2 (08:51→20:47)
[2019-08-20] MEDS: NIFEDIPINE XL 30MG TAB PO SCH ×2 (08:52→18:49)
[2019-08-20] MEDS: APIXABAN 2.5 MG TABLET PO SCH ×2 (08:52→18:48)
[2019-08-20] MEDS: ENTRESTO PO SCH ×2 (08:52→18:49)
[2019-08-20] MEDS: DOCUSATE SODIUM 100MG CAPSULE PO SCH ×2 (08:53→14:35)
[2019-08-20] MEDS ORDERED: CLONIDINE HCL 0.3MG/24HR PATCH TD SCH (20:00)
[2019-08-20] MEDS: TRAMADOL 50MG TABLET PO PRN (20:45)
[2019-08-21] VITALS: BP 129/67
[2019-08-21 04:00] VITALS: BP 107/61
[2019-08-21] MEDS: FUROSEMIDE 40MG/4ML VIAL IVP SCH (06:34)
[2019-08-21] MEDS: SODIUM CHLORIDE 0.9% INJ 3ML FLUSH IVF SCH ×2 (06:34→13:27)
[2019-08-21 08:00] VITALS: BP 155/80
[2019-08-21] MEDS: APIXABAN 2.5 MG TABLET PO SCH (08:21)
[2019-08-21] MEDS: TAMSULOSIN HCL 0.4MG SR CAPSULE PO SCH (08:21)
[2019-08-21] MEDS: GABAPENTIN 300MG CAPSULE PO SCH (08:21)
[2019-08-21] MEDS: DICLOFENAC SODIUM 75MG DR (EC) TABLET PO SCH (08:21)
[2019-08-21] MEDS: CARVEDILOL 12.5MG TABLET PO SCH (08:22)
[2019-08-21] MEDS: DOCUSATE SODIUM 100MG CAPSULE PO SCH (08:22)
[2019-08-21] MEDS: POTASSIUM CHLORIDE 20MEQ TABLET SR PO SCH (08:22)
[2019-08-21] MEDS: NIFEDIPINE XL 30MG TAB PO SCH (08:22)
[2019-08-21] MEDS: ENTRESTO PO SCH (08:22)
[2019-08-21 12:00] VITALS: BP 129/80
[2019-10-11] MEDS ORDERED: MEXI200C PO (14:54)
[2019-10-11] MEDS ORDERED: APIX2.5T PO (14:54)
[2019-10-11] MEDS ORDERED: [UNRECOGNIZED DRUG - REMARK] (14:54)
[2019-10-11] MEDS ORDERED: COLC0.6C3 PO (14:54)
[2019-10-11] MEDS ORDERED: AMIO100T4 PO (14:54)
[2019-10-11] MEDS ORDERED: SACU1TAB7 PO (14:54)
[2019-10-11] MEDS ORDERED: DOCU250C14 GT (14:54)
== END 2019-08-21 15:35 | disposition home or self-care (01) | DRG 202 ==
LOC: EDBD → ER 21:44 → 6WST 08-18 01:37 → ENRESERV 08-18 12:55
PROVIDERS: ADMIT Internal Medicine; ATTEND Internal Medicine
DX: J20.9 Acute bronchitis, unspecified (principal); I50.43 Acute on chronic combined systolic (congestive) and diastolic (congestive) heart failure; I48.20 Chronic atrial fibrillation, unspecified; J44.0 Chronic obstructive pulmonary disease with (acute) lower respiratory infection; I11.0 Hypertensive heart disease with heart failure; N40.0 Benign prostatic hyperplasia without lower urinary tract symptoms; F32.9 Major depressive disorder, single episode, unspecified; F41.9 Anxiety disorder, unspecified; G25.2 Other specified forms of tremor; K57.90 Diverticulosis of intestine, part unspecified, without perforation or abscess without bleeding; K59.00 Constipation, unspecified; L91.0 Hypertrophic scar; M10.9 Gout, unspecified; M19.90 Unspecified osteoarthritis, unspecified site; I25.10 Atherosclerotic heart disease of native coronary artery without angina pectoris; K64.9 Unspecified hemorrhoids; Z82.49 Family history of ischemic heart disease and other diseases of the circulatory system; Z87.891 Personal history of nicotine dependence; Z88.1 Allergy status to other antibiotic agents; Z95.1 Presence of aortocoronary bypass graft; Z95.2 Presence of prosthetic heart valve; Z95.810 Presence of automatic (implantable) cardiac defibrillator; Z79.899 Other long term (current) drug therapy
CPT/HCPCS: 36415; 71045; 78582; 80048; 80053; 83735; 83880; 84100; 84484; 85025; 85379; 87804; 93005; 94640; 99285; A9558; J0456; J0696; J1940; J7060

== ENCOUNTER 2019-08-25 22:08 | Inpatient (IN) | payer MEDICARE, MEDICAID ==
[~2019-08-25] VITALS: Ht 170.2 cm; Wt 81.2 kg
[2019-08-26] MEDS ORDERED: METHYLPREDNISOLONE SOD SUCC 125 MG/2 ML VIAL IV STA (03:10)
[2019-08-26] MEDS ORDERED: AZITHROMYCIN 500 MG TABLET PO ONE (03:15)
[2019-08-26] MEDS ORDERED: ASPIRIN 81MG TABLET PO ONE (03:15)
[2019-08-26] MEDS ORDERED: FUROSEMIDE 40MG/4ML VIAL IV ONE (03:15)
[2019-08-26] MEDS ORDERED: IPRATROPIUM/ALBUTEROL 0.5-3(2.5)MG/3ML NEB HHN ONE (03:15)
[2019-08-26] MEDS ORDERED: CEFTRIAXONE 1 G PREMIX 50 ML IV ONE (03:15)
[2019-08-26 03:58] LABS: BASOPHILS % 0.7 % (0.0-2.0); EOSINOPHILS % 1.4 % (0.0-5.0); HEMATOCRIT. 34.2 % (42.0-52.0); HEMOGLOBIN. 11.2 g/dL (14.0-18.0); LYMPHOCYTES % 26.1 % (20.0-50.0); MEAN CORPUSCULAR HEMOGLOBIN 30.8 pg (28.0-32.0); MEAN CORPUSCULAR VOLUME 93.8 fL (80.0-94.0); MEAN PLATELET VOLUME 8.2 fl (7.4-10.4); MONOCYTES % 9.4 % (2.0-8.0); NEUTROPHILS % 62.4 % (40.0-76.0); PLATELET 229 x1000/uL (130-400); RED BLOOD CELL COUNT 3.65 mill/uL (4.7-6.1); RED CELL DISTRIBUTION WIDTH 14.9 % (11.6-14.6)
[2019-08-26 03:59] LABS: CHLORIDE 110 mEq/L (98-107)
[2019-08-26 04:04] LABS: INR 1.1; PROTHROMBIN TIME 11.5 sec (9.6-11.0)
[2019-08-26 04:08] LABS: ETHANOL BLOOD < 10 mg/dL
[2019-08-26 04:13] LABS: CLARITY URINE CLEAR (CLEAR); COLOR URINE YELLOW (YELLOW); KETONES URINE NEGATIVE (NEGATIVE); LEUKOCYTE ESTERASE URINE NEGATIVE (NEGATIVE); NITRITE URINE NEGATIVE (NEGATIVE); OCCULT BLOOD URINE NEGATIVE (NEGATIVE); PH URINE 5.5 (4.5-8.0); PROTEIN URINE TRACE (NEGATIVE); SPECIFIC GRAVITY URINE 1.018 (1.005-1.030)
[2019-08-26 04:24] LABS: *AMPHETAMINES SCREEN URINE NEGATIVE (NEGATIVE); *BARBITURATES SCREEN URINE NEGATIVE (NEGATIVE); *BENZODIAZEPINES SCREEN URINE NEGATIVE (NEGATIVE); *COCAINE SCREEN URINE NEGATIVE (NEGATIVE); METHADONE URINE SCREEN NEGATIVE (NEGATIVE); OPIATES URINE SCREEN NEGATIVE (NEGATIVE)
[2019-08-26 04:25] LABS: CANNABINOID URINE SCREEN NEGATIVE (NEGATIVE); PHENCYCLIDINE URINE SCREEN NEGATIVE (NEGATIVE)
[2019-08-26] MEDS ORDERED: FUROSEMIDE 40MG/4ML VIAL IVP ONE (05:30)
[2019-08-26] MEDS ORDERED: IPRATROPIUM/ALBUTEROL 0.5-3(2.5)MG/3ML NEB HHN PRN (12:30)
[2019-08-26] MEDS ORDERED: ONDANSETRON HCL 4MG/2ML INJ IV PRN (12:30)
[2019-08-26] MEDS ORDERED: GUAIFENESIN 200MG/10ML SUGAR FREE UDC PO PRN (12:30)
[2019-08-26] MEDS ORDERED: CLONIDINE 0.1MG TABLET PO PRN (12:30)
[2019-08-26] MEDS ORDERED: ACETAMINOPHEN 325MG TABLET PO PRN (12:30)
[2019-08-26] MEDS ORDERED: DOCUSATE SODIUM 100MG CAPSULE PO PRN (12:30)
[2019-08-26 17:30] VITALS: BP 135/68
[2019-08-26] MEDS ORDERED: CLONIDINE HCL 0.3MG/24HR PATCH TD SCH (19:00)
[2019-08-26 20:00] VITALS: BP 135/64
[2019-08-26] MEDS ORDERED: FUROSEMIDE 40MG TABLET PO SCH (21:00)
[2019-08-26] MEDS: POTASSIUM CHLORIDE 10MEQ TABLET SR PO SCH (21:19)
[2019-08-26] MEDS: FUROSEMIDE 40MG/4ML VIAL IVP SCH (21:19)
[2019-08-26] MEDS: TAMSULOSIN HCL 0.4MG SR CAPSULE PO SCH (21:20)
[2019-08-26] MEDS: CARVEDILOL 12.5MG TABLET PO SCH (21:20)
[2019-08-26] MEDS: SACUBITRIL/VALSARTAN 49MG/51MG TABLET PO SCH (21:20)
[2019-08-26] MEDS: DICLOFENAC SODIUM 75MG DR (EC) TABLET PO SCH (21:20)
[2019-08-27] VITALS: BP 130/69
[2019-08-27 04:00] VITALS: BP 133/70
[2019-08-27] MEDS: FUROSEMIDE 40MG/4ML VIAL IVP SCH ×2 (05:43→17:14)
[2019-08-27 07:31] LABS: BASOPHILS % 0.4 % (0.0-2.0); EOSINOPHILS % 0.1 % (0.0-5.0); HEMOGLOBIN. 9.3 g/dL (14.0-18.0); LYMPHOCYTES % 15.4 % (20.0-50.0); MEAN CORPUSCULAR HEMOGLOBIN 30.9 pg (28.0-32.0); MEAN CORPUSCULAR VOLUME 93.1 fL (80.0-94.0); MEAN PLATELET VOLUME 9.1 fl (7.4-10.4); MONOCYTES % 7.9 % (2.0-8.0); NEUTROPHILS % 76.2 % (40.0-76.0); PLATELET 190 x1000/uL (130-400); RED BLOOD CELL COUNT 3.01 mill/uL (4.7-6.1); RED CELL DISTRIBUTION WIDTH 14.2 % (11.6-14.6)
[2019-08-27 08:00] VITALS: BP 123/68
[2019-08-27 08:10] LABS: CHLORIDE 111 mEq/L (98-107)
[2019-08-27] MEDS: POTASSIUM CHLORIDE 10MEQ TABLET SR PO SCH ×2 (08:49→17:14)
[2019-08-27] MEDS: FISH OIL/OMEGA-3 FATTY ACIDS 1000MG CAPSULE PO SCH (08:49)
[2019-08-27] MEDS: DICLOFENAC SODIUM 75MG DR (EC) TABLET PO SCH ×2 (08:50→23:04)
[2019-08-27] MEDS: TAMSULOSIN HCL 0.4MG SR CAPSULE PO SCH (08:50)
[2019-08-27] MEDS: CARVEDILOL 12.5MG TABLET PO SCH ×2 (08:50→23:04)
[2019-08-27] MEDS: SACUBITRIL/VALSARTAN 49MG/51MG TABLET PO SCH (08:52)
[2019-08-27 12:00] VITALS: BP 125/58
[2019-08-27 16:00] VITALS: BP 136/99
[2019-08-27] MEDS: ENTRESTO PO SCH ×2 (17:14→23:03)
[2019-08-27 20:00] VITALS: BP 138/80
[2019-08-28] VITALS: BP 142/93
[2019-08-28 04:00] VITALS: BP 125/74
[2019-08-28] MEDS: FUROSEMIDE 40MG/4ML VIAL IVP SCH (05:54)
[2019-08-28 07:05] LABS: BASOPHILS % 0.6 % (0.0-2.0); EOSINOPHILS % 1.9 % (0.0-5.0); HEMATOCRIT. 30.8 % (42.0-52.0); HEMOGLOBIN. 10.1 g/dL (14.0-18.0); LYMPHOCYTES % 17.5 % (20.0-50.0); MEAN CORPUSCULAR HEMOGLOBIN 30.4 pg (28.0-32.0); MEAN CORPUSCULAR VOLUME 92.6 fL (80.0-94.0); MEAN PLATELET VOLUME 8.5 fl (7.4-10.4); MONOCYTES % 8.1 % (2.0-8.0); NEUTROPHILS % 71.9 % (40.0-76.0); PLATELET 221 x1000/uL (130-400); RED BLOOD CELL COUNT 3.33 mill/uL (4.7-6.1); RED CELL DISTRIBUTION WIDTH 14.7 % (11.6-14.6)
[2019-08-28 08:00] VITALS: BP 120/84
[2019-08-28] MEDS: CARVEDILOL 12.5MG TABLET PO SCH (08:31)
[2019-08-28] MEDS: ENTRESTO PO SCH (08:31)
[2019-08-28] MEDS: TAMSULOSIN HCL 0.4MG SR CAPSULE PO SCH (08:32)
[2019-08-28] MEDS: FISH OIL/OMEGA-3 FATTY ACIDS 1000MG CAPSULE PO SCH (08:32)
[2019-08-28] MEDS: DICLOFENAC SODIUM 75MG DR (EC) TABLET PO SCH (08:32)
[2019-08-28] MEDS: POTASSIUM CHLORIDE 10MEQ TABLET SR PO SCH (08:32)
[2019-08-28 12:00] VITALS: BP 118/79
[2019-08-28 12:22] VITALS: BP 118/79
[2019-08-28] MEDS ORDERED: POTASSIUM CHLORIDE 20MEQ TABLET SR PO SCH (14:00)
[2019-10-11] MEDS ORDERED: SACU1TAB7 PO (14:54)
[2019-10-11] MEDS ORDERED: [UNRECOGNIZED DRUG - REMARK] (14:54)
[2019-10-11] MEDS ORDERED: AMIO100T4 PO (14:54)
[2019-10-11] MEDS ORDERED: MEXI200C PO (14:54)
[2019-10-11] MEDS ORDERED: COLC0.6C3 PO (14:54)
[2019-10-11] MEDS ORDERED: APIX2.5T PO (14:54)
[2019-10-11] MEDS ORDERED: DOCU250C14 GT (14:54)
== END 2019-08-28 14:45 | disposition home or self-care (01) | DRG 292 ==
LOC: EDBD → ER 22:08 → EDBEDREQTM 08-26 06:09 → EDBEDREQ 08-26 06:09 → ENRESERV 08-26 16:34 → 7WST 08-26 18:03
PROVIDERS: ADMIT Internal Medicine; ATTEND Internal Medicine
DX: I11.0 Hypertensive heart disease with heart failure (principal); I48.20 Chronic atrial fibrillation, unspecified; G25.2 Other specified forms of tremor; I50.43 Acute on chronic combined systolic (congestive) and diastolic (congestive) heart failure; I43 Cardiomyopathy in diseases classified elsewhere; J44.9 Chronic obstructive pulmonary disease, unspecified; K57.90 Diverticulosis of intestine, part unspecified, without perforation or abscess without bleeding; D64.9 Anemia, unspecified; M19.90 Unspecified osteoarthritis, unspecified site; N40.1 Benign prostatic hyperplasia with lower urinary tract symptoms; F41.8 Other specified anxiety disorders; I25.10 Atherosclerotic heart disease of native coronary artery without angina pectoris; Z96.641 Presence of right artificial hip joint; Z96.652 Presence of left artificial knee joint; M10.9 Gout, unspecified; I35.0 Nonrheumatic aortic (valve) stenosis; K59.00 Constipation, unspecified; I48.91 Unspecified atrial fibrillation; L91.0 Hypertrophic scar; Z82.49 Family history of ischemic heart disease and other diseases of the circulatory system; Z95.1 Presence of aortocoronary bypass graft; Z95.2 Presence of prosthetic heart valve; Z87.891 Personal history of nicotine dependence; Z88.1 Allergy status to other antibiotic agents; Z95.0 Presence of cardiac pacemaker; Z79.899 Other long term (current) drug therapy; N28.9 Disorder of kidney and ureter, unspecified
CPT/HCPCS: 36415; 71045; 80048; 80053; 80305; 80320; 81003; 83605; 83735; 83880; 84484; 85025; 93005; 94640; 99285; J0696; J1940; J2930; G0480

== ENCOUNTER 2019-09-11 12:44 | Inpatient (IN) | payer MEDICARE, MEDICAID ==
[~2019-09-11] VITALS: Ht 170.2 cm; Wt 86.2 kg
[2019-09-11] MEDS ORDERED: SACU1TAB7 MT (12:49)
[2019-09-11] MEDS ORDERED: ALBUTEROL (0.083%) 2.5MG/3ML NEB HHN STA (13:38)
[2019-09-11] MEDS ORDERED: IPRATROPIUM BROMIDE (0.02%) 0.5MG/2.5ML NEB HHN STA (13:38)
[2019-09-11] MEDS ORDERED: FUROSEMIDE 40MG/4ML VIAL IV ONE (13:45)
[2019-09-11 14:53] LABS: BASOPHILS % 0.8 % (0.0-2.0); EOSINOPHILS % 1.1 % (0.0-5.0); HEMATOCRIT. 30.8 % (42.0-52.0); HEMOGLOBIN. 9.7 g/dL (14.0-18.0); LYMPHOCYTES % 20.5 % (20.0-50.0); MEAN CORPUSCULAR HEMOGLOBIN 29.7 pg (28.0-32.0); MEAN CORPUSCULAR VOLUME 93.9 fL (80.0-94.0); MEAN PLATELET VOLUME 9.3 fl (7.4-10.4); MONOCYTES % 10.1 % (2.0-8.0); NEUTROPHILS % 67.5 % (40.0-76.0); PLATELET 143 x1000/uL (130-400); RED BLOOD CELL COUNT 3.28 mill/uL (4.7-6.1); RED CELL DISTRIBUTION WIDTH 15.1 % (11.6-14.6)
[2019-09-11 14:56] LABS: CHLORIDE 112 mEq/L (98-107)
[2019-09-11] MEDS ORDERED: IPRATROPIUM/ALBUTEROL 0.5-3(2.5)MG/3ML NEB HHN PRN (18:30)
[2019-09-11] MEDS ORDERED: CLONIDINE 0.1MG TABLET PO PRN (18:30)
[2019-09-11] MEDS ORDERED: ENOXAPARIN 40MG/0.4ML SYR SUBCUT SCH (18:30)
[2019-09-11] MEDS ORDERED: ONDANSETRON HCL 4MG/2ML INJ IV PRN (18:30)
[2019-09-11] MEDS ORDERED: GUAIFENESIN 200MG/10ML SUGAR FREE UDC PO PRN (18:30)
[2019-09-11 20:38] LABS: T4 FREE 1.56 ng/dL (0.76-1.46)
[2019-09-11 21:45] VITALS: BP 135/71
[2019-09-11] MEDS ORDERED: CLONIDINE HCL 0.3MG/24HR PATCH TD SCH (23:30)
[2019-09-11] MEDS: LORATADINE 10MG TABLET PO SCH (23:33)
[2019-09-11] MEDS: FUROSEMIDE 40MG TABLET PO SCH (23:33)
[2019-09-11] MEDS: CARVEDILOL 12.5MG TABLET PO SCH (23:33)
[2019-09-11] MEDS: FISH OIL/OMEGA-3 FATTY ACIDS 1000MG CAPSULE PO SCH (23:33)
[2019-09-11] MEDS: TAMSULOSIN HCL 0.4MG SR CAPSULE PO SCH (23:33)
[2019-09-11] MEDS: DICLOFENAC SODIUM 75MG DR (EC) TABLET PO SCH (23:34)
[2019-09-11] MEDS: POTASSIUM CHLORIDE 20MEQ TABLET SR PO SCH (23:34)
[2019-09-11] MEDS: ENOXAPARIN 30MG/0.3ML SYR SUBCUT SCH (23:35)
[2019-09-11] MEDS: SACUBITRIL/VALSARTAN 49MG/51MG TABLET PO SCH (23:36)
[2019-09-12] VITALS (7 sets, daily range): BP systolic 110–154; BP diastolic 60–82
[2019-09-12] MEDS: FUROSEMIDE 40MG TABLET PO SCH ×2 (06:38→16:34)
[2019-09-12 07:31] LABS: BASOPHILS % 0.8 % (0.0-2.0); EOSINOPHILS % 1.6 % (0.0-5.0); HEMATOCRIT. 30.5 % (42.0-52.0); HEMOGLOBIN. 9.9 g/dL (14.0-18.0); LYMPHOCYTES % 21.1 % (20.0-50.0); MEAN CORPUSCULAR HEMOGLOBIN 30.3 pg (28.0-32.0); MONOCYTES % 10.3 % (2.0-8.0); NEUTROPHILS % 66.2 % (40.0-76.0); PLATELET 151 x1000/uL (130-400); RED BLOOD CELL COUNT 3.28 mill/uL (4.7-6.1); RED CELL DISTRIBUTION WIDTH 15.1 % (11.6-14.6)
[2019-09-12 07:49] LABS: CHLORIDE 112 mEq/L (98-107)
[2019-09-12 08:14] LABS: PHOSPHORUS 3.1 mg/dL (2.5-4.9)
[2019-09-12] MEDS: FISH OIL/OMEGA-3 FATTY ACIDS 1000MG CAPSULE PO SCH (09:00)
[2019-09-12] MEDS: SACUBITRIL/VALSARTAN 49MG/51MG TABLET PO SCH ×2 (09:00→21:52)
[2019-09-12] MEDS: TAMSULOSIN HCL 0.4MG SR CAPSULE PO SCH (09:01)
[2019-09-12] MEDS: CARVEDILOL 12.5MG TABLET PO SCH ×2 (09:01→21:06)
[2019-09-12] MEDS: DICLOFENAC SODIUM 75MG DR (EC) TABLET PO SCH ×2 (09:01→21:06)
[2019-09-12] MEDS: POTASSIUM CHLORIDE 20MEQ TABLET SR PO SCH ×2 (09:01→16:33)
[2019-09-12] MEDS: LORATADINE 10MG TABLET PO SCH (09:01)
[2019-09-12] MEDS: DOCUSATE SODIUM 100MG CAPSULE PO PRN (11:59)
[2019-09-12] MEDS: ACETAMINOPHEN 325MG TABLET PO PRN ×2 (12:00→21:08)
[2019-09-12] MEDS: ENOXAPARIN 30MG/0.3ML SYR SUBCUT SCH (21:06)
[2019-09-12] MEDS: MAGNESIUM/ALUMINUM HYDROXIDE/SIMETHICONE 30ML UDC PO PRN (23:53)
[2019-09-13] VITALS: BP 163/89
[2019-09-13] MEDS ORDERED: HYDROCODONE/ACETAMINOPHEN 5/325MG TABLET PO PRN (02:00)
[2019-09-13 04:00] VITALS: BP 139/77
[2019-09-13] MEDS: MORPHINE SULFATE 2 MG/ML CPJ (NOT FOR IM USE) IV PRN ×2 (04:52→09:35)
[2019-09-13] MEDS: FUROSEMIDE 40MG TABLET PO SCH (06:35)
[2019-09-13 07:33] LABS: BASOPHILS % 1.2 % (0.0-2.0); EOSINOPHILS % 1.3 % (0.0-5.0); HEMATOCRIT. 29.8 % (42.0-52.0); HEMOGLOBIN. 9.7 g/dL (14.0-18.0); LYMPHOCYTES % 25.9 % (20.0-50.0); MEAN CORPUSCULAR HEMOGLOBIN 30.5 pg (28.0-32.0); MEAN CORPUSCULAR VOLUME 93.2 fL (80.0-94.0); MEAN PLATELET VOLUME 9.1 fl (7.4-10.4); MONOCYTES % 9.6 % (2.0-8.0); PLATELET 150 x1000/uL (130-400); RED CELL DISTRIBUTION WIDTH 15.1 % (11.6-14.6)
[2019-09-13 08:00] VITALS: BP 163/90
[2019-09-13] MEDS: LORATADINE 10MG TABLET PO SCH (09:36)
[2019-09-13] MEDS: TAMSULOSIN HCL 0.4MG SR CAPSULE PO SCH (09:36)
[2019-09-13] MEDS: POTASSIUM CHLORIDE 20MEQ TABLET SR PO SCH ×2 (09:36→17:04)
[2019-09-13] MEDS: DICLOFENAC SODIUM 75MG DR (EC) TABLET PO SCH ×2 (09:36→20:26)
[2019-09-13] MEDS: CARVEDILOL 12.5MG TABLET PO SCH ×2 (09:37→20:27)
[2019-09-13] MEDS: FISH OIL/OMEGA-3 FATTY ACIDS 1000MG CAPSULE PO SCH (09:38)
[2019-09-13] MEDS: SACUBITRIL/VALSARTAN 49MG/51MG TABLET PO SCH ×2 (11:04→21:56)
[2019-09-13] MEDS: DOCUSATE SODIUM 100MG CAPSULE PO PRN (11:06)
[2019-09-13 12:00] VITALS: BP 155/81
[2019-09-13 13:52] LABS: CLARITY URINE CLEAR (CLEAR); COLOR URINE YELLOW (YELLOW); KETONES URINE NEGATIVE (NEGATIVE); LEUKOCYTE ESTERASE URINE NEGATIVE (NEGATIVE); NITRITE URINE NEGATIVE (NEGATIVE); OCCULT BLOOD URINE NEGATIVE (NEGATIVE); PH URINE 6.5 (4.5-8.0); PROTEIN URINE NEGATIVE (NEGATIVE); SPECIFIC GRAVITY URINE 1.008 (1.005-1.030); UROBILINOGEN URINE 0.2 E.U./dL (0.2-1.0)
[2019-09-13 16:00] VITALS: BP 140/91
[2019-09-13] MEDS: FUROSEMIDE 40MG/4ML VIAL IVP SCH (17:03)
[2019-09-13 20:00] VITALS: BP 124/71
[2019-09-13] MEDS: ENOXAPARIN 30MG/0.3ML SYR SUBCUT SCH (20:27)
[2019-09-14] VITALS: BP 140/76
[2019-09-14 04:00] VITALS: BP 120/73
[2019-09-14] MEDS ORDERED: CLONIDINE HCL 0.3MG/24HR PATCH TD ONE (06:30)
[2019-09-14] MEDS: FUROSEMIDE 40MG/4ML VIAL IVP SCH ×2 (06:53→16:36)
[2019-09-14] MEDS: DOCUSATE SODIUM 100MG CAPSULE PO PRN ×2 (06:53→22:01)
[2019-09-14 08:00] VITALS: BP 151/81
[2019-09-14] MEDS: TAMSULOSIN HCL 0.4MG SR CAPSULE PO SCH (09:12)
[2019-09-14] MEDS: DICLOFENAC SODIUM 75MG DR (EC) TABLET PO SCH ×2 (09:12→21:00)
[2019-09-14] MEDS: CARVEDILOL 12.5MG TABLET PO SCH ×2 (09:12→21:00)
[2019-09-14] MEDS: POTASSIUM CHLORIDE 20MEQ TABLET SR PO SCH ×2 (09:13→16:43)
[2019-09-14] MEDS: MAGNESIUM/ALUMINUM HYDROXIDE/SIMETHICONE 30ML UDC PO PRN (09:13)
[2019-09-14] MEDS: LORATADINE 10MG TABLET PO SCH (09:13)
[2019-09-14] MEDS: FISH OIL/OMEGA-3 FATTY ACIDS 1000MG CAPSULE PO SCH (09:14)
[2019-09-14 12:00] VITALS: BP 137/64
[2019-09-14] MEDS: SACUBITRIL/VALSARTAN 49MG/51MG TABLET PO SCH ×2 (12:13→21:00)
[2019-09-14 18:02] VITALS: BP 139/54
[2019-09-14 20:00] VITALS: BP 128/90
[2019-09-14] MEDS: ENOXAPARIN 30MG/0.3ML SYR SUBCUT SCH (20:59)
[2019-09-14] MEDS: MORPHINE SULFATE 2 MG/ML CPJ (NOT FOR IM USE) IV PRN (21:00)
[2019-09-14] MEDS ORDERED: LACTULOSE 20G/30ML UDC PO PRN (22:30)
[2019-09-15] VITALS: BP 139/76
[2019-09-15] MEDS: LACTULOSE 20G/30ML UDC PO SCH ×2 (00:15→03:32)
[2019-09-15 04:00] VITALS: BP 132/79
[2019-09-15] MEDS: FUROSEMIDE 40MG/4ML VIAL IVP SCH (06:39)
[2019-09-15 07:10] LABS: BASOPHILS % 0.5 % (0.0-2.0); EOSINOPHILS % 1.4 % (0.0-5.0); HEMATOCRIT. 32.6 % (42.0-52.0); HEMOGLOBIN. 10.4 g/dL (14.0-18.0); LYMPHOCYTES % 26.1 % (20.0-50.0); MEAN CORPUSCULAR HEMOGLOBIN 29.8 pg (28.0-32.0); MEAN CORPUSCULAR VOLUME 93.3 fL (80.0-94.0); MEAN PLATELET VOLUME 9.1 fl (7.4-10.4); MONOCYTES % 11.6 % (2.0-8.0); NEUTROPHILS % 60.4 % (40.0-76.0); PLATELET 180 x1000/uL (130-400); RED BLOOD CELL COUNT 3.49 mill/uL (4.7-6.1); RED CELL DISTRIBUTION WIDTH 15.6 % (11.6-14.6)
[2019-09-15 08:00] VITALS: BP 121/78
[2019-09-15] MEDS: SACUBITRIL/VALSARTAN 49MG/51MG TABLET PO SCH (08:51)
[2019-09-15] MEDS: LORATADINE 10MG TABLET PO SCH (08:51)
[2019-09-15] MEDS: CARVEDILOL 12.5MG TABLET PO SCH (08:51)
[2019-09-15] MEDS: TAMSULOSIN HCL 0.4MG SR CAPSULE PO SCH (08:51)
[2019-09-15] MEDS: FISH OIL/OMEGA-3 FATTY ACIDS 1000MG CAPSULE PO SCH (08:52)
[2019-09-15] MEDS: DICLOFENAC SODIUM 75MG DR (EC) TABLET PO SCH (08:52)
[2019-09-15] MEDS ORDERED: LACTULOSE 20G/30ML UDC PO SCH (09:00)
[2019-09-15] MEDS ORDERED: DOCUSATE SODIUM 100MG CAPSULE PO SCH (09:00)
[2019-09-15] MEDS: POTASSIUM CHLORIDE 20MEQ TABLET SR PO SCH (09:06)
[2019-09-15 10:49] VITALS: BP 121/78
[2019-10-11] MEDS ORDERED: COLC0.6C3 PO (14:54)
[2019-10-11] MEDS ORDERED: DOCU250C14 GT (14:54)
[2019-10-11] MEDS ORDERED: AMIO100T4 PO (14:54)
[2019-10-11] MEDS ORDERED: SACU1TAB7 PO (14:54)
[2019-10-11] MEDS ORDERED: APIX2.5T PO (14:54)
[2019-10-11] MEDS ORDERED: MEXI200C PO (14:54)
[2019-10-11] MEDS ORDERED: [UNRECOGNIZED DRUG - REMARK] (14:54)
== END 2019-09-15 12:00 | disposition home or self-care (01) | DRG 698 ==
LOC: EDBD → ER 13:00 → 5WST 15:57 → EDBEDREQ 16:06 → ENRESERV 20:21
PROVIDERS: ADMIT Internal Medicine; ATTEND Internal Medicine
DX: N28.9 Disorder of kidney and ureter, unspecified (principal); I50.43 Acute on chronic combined systolic (congestive) and diastolic (congestive) heart failure; I48.20 Chronic atrial fibrillation, unspecified; K92.2 Gastrointestinal hemorrhage, unspecified; I43 Cardiomyopathy in diseases classified elsewhere; I11.0 Hypertensive heart disease with heart failure; D64.9 Anemia, unspecified; F32.9 Major depressive disorder, single episode, unspecified; F41.9 Anxiety disorder, unspecified; I25.10 Atherosclerotic heart disease of native coronary artery without angina pectoris; Z96.641 Presence of right artificial hip joint; Z96.652 Presence of left artificial knee joint; G25.2 Other specified forms of tremor; K59.00 Constipation, unspecified; G89.29 Other chronic pain; L91.0 Hypertrophic scar; N40.0 Benign prostatic hyperplasia without lower urinary tract symptoms; I35.0 Nonrheumatic aortic (valve) stenosis; M54.5 Low back pain; R10.9 Unspecified abdominal pain; J44.9 Chronic obstructive pulmonary disease, unspecified; M19.90 Unspecified osteoarthritis, unspecified site; Z95.1 Presence of aortocoronary bypass graft; Z95.2 Presence of prosthetic heart valve; Z95.810 Presence of automatic (implantable) cardiac defibrillator; Z87.891 Personal history of nicotine dependence; Z82.49 Family history of ischemic heart disease and other diseases of the circulatory system; Z88.1 Allergy status to other antibiotic agents; Z79.899 Other long term (current) drug therapy; Z98.42 Cataract extraction status, left eye
CPT/HCPCS: 36415; 71045; 76700; 80048; 80053; 81003; 82040; 83735; 83880; 84100; 84439; 84484; 85025; 93005; 93970; 94640; 96374; 99285; J1650; J1940; J2270

== ENCOUNTER 2019-09-19 14:00 | Emergency (ER) | payer MEDICARE, MEDICAID | END 2019-09-19 15:05 | disposition left against medical advice (07) | LOC: ER 14:00 | DX: Z53.21 Procedure and treatment not carried out due to patient leaving prior to being seen by health care provider (principal); Z88.3 Allergy status to other anti-infective agents ==